=== PATIENT | male | born 1930 | race Asian ===

== ENCOUNTER 2016-04-06 00:23 | Inpatient (IN) | payer MEDICARE, OTHER ==
[~2016-04-06] VITALS: Ht 175.3 cm; Wt 63.5 kg
[2016-04-06] VITALS (9 sets, daily range): BP systolic 86–177; BP diastolic 35–105
[2016-04-06] MEDS ORDERED: DOCUSATE SODIU100 MG ORAL (00:32)
[2016-04-06] MEDS ORDERED: ZOLOFT50 MG ORAL (00:32)
[2016-04-06] MEDS ORDERED: PEPCID20 MG ORAL (00:32)
[2016-04-06] MEDS ORDERED: ATENOLOL100 MG ORAL (00:32)
[2016-04-06] MEDS ORDERED: ARICEPT10 MG ORAL (00:32)
[2016-04-06] MEDS ORDERED: PLAVIX75 MG ORAL (00:32)
[2016-04-06] MEDS ORDERED: ISOSORBIDE MONO10 MG PO (00:32)
[2016-04-06] MEDS ORDERED: NAMENDA10 MG ORAL (00:32)
[2016-04-06] MEDS ORDERED: ATORVASTATIN CA10 MG ORAL (00:32)
[2016-04-06] MEDS ORDERED: Ipratropium 0.02% Inh Soln 2.5ml UD HHN ONE (00:45)
[2016-04-06] MEDS ORDERED: NS 1000ml 1,900 ML IVLG ONE (00:45)
[2016-04-06] MEDS ORDERED: metroNIDAZOLE 500mg 100 ML IV SCH (00:45)
[2016-04-06] MEDS: Albuterol ud Inhalation HHN SCH ×12 (00:47→03:51)
[2016-04-06] MEDS ORDERED: Cefepime 1gm vial ONE (01:10)
[2016-04-06] MEDS ORDERED: NS 50 ML IV ONE (01:10)
[2016-04-06] MEDS ORDERED: Tubing IV Cassette IV ONE ×2 (01:10→02:32)
[2016-04-06] MEDS ORDERED: Acetaminophen 650mg/20.3ml NG ONE (02:00)
[2016-04-06 02:02] LABS: BASOPHILS % (AUTO) 0.8 % (0.0-2.0); EOSINOPHILS % (AUTO) 0.4 % (0.0-3.0); LYMPHOCYTES % (AUTO) 23.5 % (20.0-45.0); MEAN CORPUSCULAR HGB CONC 32.5 G/DL (32.0-36.0); MEAN CORPUSCULAR VOLUME 99 FL (80-99); MEAN PLATELET VOLUME 11.2 FL (6.5-10.1); MONOCYTES % (AUTO) 4.6 % (1.0-10.0); NEUTROPHILS % (AUTO) 70.7 % (45.0-75.0); PLATELET COUNT 206 K/UL (150-450); RED BLOOD COUNT 3.93 M/UL (4.70-6.10); RED CELL DISTRIBUTION WIDTH 12.8 % (11.6-14.8); WHITE BLOOD COUNT 10.7 K/UL (4.8-10.8)
[2016-04-06 02:04] LABS: INR 1.1 (0.9-1.1); PROTHROMBIN TIME 10.7 SEC (9.30-11.50)
[2016-04-06 02:10] LABS: TROPONIN I < 0.30 ng/mL (<=0.30)
[2016-04-06 02:11] LABS: ALANINE AMINOTRANSFERASE 15 U/L (3-41); ANION GAP 18 (5-15); ASPARTATE AMINO TRANSFERASE 25 U/L (5-40); CARBON DIOXIDE 22 mEQ/L (20-30); CHLORIDE 93 mEQ/L (98-107); CREATININE 1.3 mg/dL (0.7-1.2); HEMOLYSIS 20; POTASSIUM 4.4 mEQ/L (3.4-4.9); SODIUM 133 mEQ/L (135-145); TOTAL PROTEIN 7.7 g/dL (6.6-8.7)
[2016-04-06 02:15] LABS: REFLEX LACTIC ACID YES OR NO YES
[2016-04-06] MEDS ORDERED: D5W 250 ML ONE (02:32)
[2016-04-06] MEDS ORDERED: Vancomycin 1gm inj IVPB ONE (02:32)
[2016-04-06] MEDS ORDERED: Morphine Sulfate 2mg/ml Inj IVP ONE (03:15)
--- NOTE | 2016-04-06 03:42 | Emergency Room Report ---
History of Present Illness General Chief Complaint: Dyspnea/Respdistress Source: EMS Present Illness HPI Patient presents with dyspnea. EMS felt the patient to be warm to touch. Tachypnea and rhonchi. Patient is DNR. H/O CVA, CAD, dementia. No further history available. Allergies: Coded Allergies: No Known Allergies (Unverified , 04/06/16) Patient History Limited by: medical condition Past Medical History: see triage record Social History Narrative SNF Reviewed Nursing Documentation: PMH: Agreed, PSxH: Agreed Nursing Documentation-PMH Past Medical History: No History, Except For Hx Gastrointestinal Problems: Yes - g-tube, dysphagia Review of Systems All Other Systems: limited Physical Exam Vital Signs Date Time Temp Pulse Resp B/P Pulse Ox O2 Delivery O2 Flow Rate FiO2 04/06/16 00:20 85 22 180/90 93 Non-Rebreather 15.0 04/06/16 00:43 100 04/06/16 01:35 103.2 Sp02 EP Interpretation: reviewed, normal General Appearance: moderate distress, Chronically Ill Head: normocephalic Eyes: bilateral eye PERRL, bilateral eye normal inspection ENT: moist mucus membranes Neck: supple Respiratory: respiratory distress, rales, rhonchi, wheezing Cardiovascular #1: regular rate, rhythm, tachycardia Cardiovascular #2: 2+ radial (R) Gastrointestinal: normal inspection, non tender, no mass, non-distended, abnormal bowel sounds - decreased Musculoskeletal: back normal, gait/station normal, normal range of motion, pelvis stable, other - minimal contractures Neurologic: responsive - but with respiratory distress Psychiatric: other - resp to pain Skin: warm/dry Procedures Critical Care Time Critical Care Time Total time: 30 min bedside evaluation and treatment excludes procedures (EKG). Reason for critical care: respiratory distress, sepsis Possible complications: hypotension, hypertension, OK, shock, arrhythmias, metabolic acidosis, end organ damage, respiratory failure. Interventions: fluid bolus, antibiotics, treatment of fever, BIPAP, repeat evaluations and attempt to pass [place], determination of level of care Course: Patient with respiratory distress. CXR with pneumonia. Bronchodilators. Discussed with PMD. Still with resp distress. Morphine administered. Review of advanced directives allows for BIPAP. This is started with improvement and decreased distress and aid with respirations. Consultations: nursing staff, EMS, RT, PMD Performed by: Dr. Pamela Tolerated well condition = critical Medical Decision Making Diagnostic Impression: Primary Impression: Acute pneumonia Additional Impressions: Sepsis Qualified Codes: A41.9 - Sepsis, unspecified organism Unable to pass [place] ER Course Patient with respiratory distress. DDx pneumonia, CHF, AMI amongst others. Emergent evaluation with labs, EKG, CXR and treatment with IV bolus and albuterol with suctioning. CXR with L infiltrate. Fluids bolused and antibiotics begun. Attempt to pass [place]. Unable. Some improvement with morphine. Patient with resp distress. Ordering BIPAP for comfort measures- POLST reviewed. Admit Tele Dr. Grant. Patient improved on BIPAP. Laboratory Tests Test 04/06/16 00:32 04/06/16 01:40 Prothrombin Time 10.7 SEC (9.30-11.50) Prothrombin Time INR 1.1 (0.9-1.1) PTT 27 SEC (23-33) White Blood Count 10.7 K/UL (4.8-10.8) Red Blood Count 3.93 M/UL (4.70-6.10) L Hemoglobin 12.6 G/DL (14.2-18.0) L Hematocrit 38.8 % (42.0-52.0) L Mean Corpuscular Volume 99 FL (80-99) Mean Corpuscular Hemoglobin 32.0 PG (27.0-31.0) H Mean Corpuscular Hemoglobin Concent 32.5 G/DL (32.0-36.0) Red Cell Distribution Width 12.8 % (11.6-14.8) Platelet Count 206 K/UL (150-450) Mean Platelet Volume 11.2 FL (6.5-10.1) H Neutrophils (%) (Auto) 70.7 % (45.0-75.0) Lymphocytes (%) (Auto) 23.5 % (20.0-45.0) Monocytes (%) (Auto) 4.6 % (1.0-10.0) Eosinophils (%) (Auto) 0.4 % (0.0-3.0) Basophils (%) (Auto) 0.8 % (0.0-2.0) Sodium Level 133 mEQ/L (135-145) L Potassium Level 4.4 mEQ/L (3.4-4.9) Chloride Level 93 mEQ/L (98-107) L Carbon Dioxide Level 22 mEQ/L (20-30) Anion Gap 18 (5-15) H Blood Urea Nitrogen 26 mg/dL (7-23) H Creatinine 1.3 mg/dL (0.7-1.2) H Estimate Glomerular Filtration Rate mL/min (>60) Glucose Level 148 mg/dL (74-106) H Lactic Acid Level 4.20 mmol/L (0.66-2.22) H Calcium Level 9.0 mg/dL (8.6-10.2) Total Bilirubin 0.3 mg/dL (0.0-1.2) Aspartate Amino Transferase (AST) 25 U/L (5-40) Alanine Aminotransferase (ALT) 15 U/L (3-41) Alkaline Phosphatase 64 U/L (40-129) Total Creatine Kinase 68 U/L (38-174) Troponin I < 0.30 ng/mL (<=0.30) Pro-B-Type Natriuretic Peptide 1920 pg/mL (0-450) H Total Protein 7.7 g/dL (6.6-8.7) Albumin 3.9 g/dL (3.5-5.2) Globulin 3.8 g/dL Albumin/Globulin Ratio 1.0 (1.0-2.7) EKG Diagnostic Results Rate: tachycardiac ST Segments: no acute changes Rhythm Strip Diag. Results EP Interpretation: yes Rhythm: no PVC's, no ectopy, other - ST Chest X-Ray Diagnostic Results EP Interpretation: Yes Findings: no pneumothorax, other - L infiltrate, increased cor Number of Views: 1 Last Vital Signs Date Time Temp Pulse Resp B/P Pulse Ox O2 Delivery O2 Flow Rate FiO2 04/06/16 02:57 102.6 130 29 168/64 96 Non-Rebreather 8.0 04/06/16 02:05 100 Status: improved Disposition: ADMITTED INPATIENT Condition: Serious Referrals: NON PHYSICIAN (PCP) Beto Santiago M.D. Apr 06, 2016 03:42
[2016-04-06 07:29] LABS: ABG ALLEN TEST POSITIVE; ABG BASE EXCESS -7.3
--- NOTE | 2016-04-06 08:49 | Diagnostic Imaging Report ---
Indications: COUGH Technique: Portable AP chest Findings: Comparison: None Left lung volume decreased compared to right. Increased interstitial markings throughout both lungs. Pleural calcification left base. Right pleural abnormality. Cardiac silhouette enlarged. Pulmonary vasculature within normal limits. Aortic arch calcified. IMPRESSION: Bilateral interstitial disease, left lung volume loss, nonspecific, acuity indeterminate Left basal pleural calcification likely chronic postinflammatory in nature Cardiomegaly Aortosclerosis
[2016-04-06] MEDS ORDERED: Docusate 100mg cap ORAL SCH (09:00)
[2016-04-06] MEDS ORDERED: Donepezil 10mg tab ORAL SCH (09:00)
[2016-04-06] MEDS ORDERED: Sertraline 50mg tab ORAL SCH (09:00)
[2016-04-06] MEDS: Docusate 100mg tablet GT SCH ×2 (10:13→17:20)
[2016-04-06] MEDS: Sertraline 50mg tab GT SCH (10:13)
[2016-04-06] MEDS: Heparin 5000 units/ml inj SUBQ SCH ×2 (10:15→21:40)
[2016-04-06 10:24] LABS: ABG ALLEN TEST POSITIVE; ABG BASE EXCESS -7.5; ABG PCO2 39.6 mmHg (35.0-45.0)
--- NOTE | 2016-04-06 10:58 | History and Physical Report ---
DATE OF ADMISSION: 04/06/2016 CHIEF COMPLAINT: Respiratory failure, sepsis, and pneumonia. HISTORY OF PRESENT ILLNESS: The patient is a 86-year-old male. He has a history of dysphagia, stroke, dementia. He was transferred from a snf facility with complaints of shortness of breath and respiratory distress. On evaluation in the emergency room, the patient was febrile as high as 102. He was tachycardiac. He was eventually placed on BiPAP because of progressive shortness of breath. Laboratory tests were remarkable for white count of 11,000. He had a lactic acid level of 5.8. X-ray evidence of pneumonia. The patient had been started on broad-spectrum antibiotic therapy. He has been pancultured. There is a pulse for Do Not Resuscitate. The patient now admitted for further evaluation and care. He is lethargic and unable to provide any history. PAST MEDICAL HISTORY: As above. PAST SURGICAL HISTORY: Includes a G-tube. CURRENT MEDICATIONS: Reviewed. ALLERGIES: None. FAMILY HISTORY: None. SOCIAL HISTORY: There is no known history of tobacco, ethanol, or drugs. REVIEW OF SYSTEMS: From the patient is unobtainable. PHYSICAL EXAMINATION: VITAL SIGNS: Current temperature is 96.8 degrees, blood pressure 108/64, pulse of 103, and respirations 24. GENERAL: The patient is a chronic well-appearing male, in no apparent distress. HEART: Regular rate and rhythm. LUNGS: Significant for scattered rhonchi. ABDOMEN: Soft, nontender, and nondistended. EXTREMITIES: Without clubbing, cyanosis, or edema. LABORATORY DATA: White count 11, hemoglobin 12, hematocrit 38, and platelets 206,000. Sodium 133, potassium 4.4, chloride 93, bicarb 22, BUN 26, and creatinine . ASSESSMENT: This is a unfortunate male admitted with acute pneumonia, respiratory failure, sepsis, lactic acidosis, history of stroke, and history of toxic metabolic encephalopathy secondary to infection. PLAN: Continue BiPAP, respiratory treatments, IV antibiotics, intravenous hydration, DVT, and stress ulcer prophylaxis. The patient's prognosis is poor. Benjamin Machado M.D. DR: LULI JOB#: [id number] CC:
[2016-04-06] MEDS: Memantine 10mg tab GT SCH ×2 (11:47→21:40)
[2016-04-06] MEDS ORDERED: Memantine 10mg tab ORAL SCH (12:00)
[2016-04-06] MEDS: Donepezil 10mg tab GT SCH (21:39)
[2016-04-07 00:11] VITALS: BP 130/49
--- NOTE | 2016-04-07 03:47 | Consultation ---
DATE OF CONSULTATION: 04/06/2016 CARDIOLOGY CONSULTATION REQUESTING PHYSICIAN: Benjamin Machado M.D. REASON: Elevated natriuretic peptide assay. HISTORY OF PRESENT ILLNESS: This is an 86-year-old male residing at a [facility] facility, was transferred by paramedics to the emergency room for evaluation of shortness of breath. Nursing staff described relatively acute onset. The patient has a DNR status and is debilitated due to underlying cerebrovascular disease. The patient was short of breath, hypoxic, and tachycardic. He was pancultured. Chest x-ray revealed interstitial infiltrates. Lactic acid level was as high as 5.8. PAST MEDICAL HISTORY: 1. Cerebrovascular disease with dementia. 2. Dysphagia with gastrostomy tube. 3. Atherosclerotic cardiovascular disease. ALLERGIES: None known. FAMILY HISTORY: Noncontributory. SOCIAL HISTORY: No record of smoking or alcohol abuse. Advanced directives, DNR. MEDICATIONS: Prior to admission, reviewed and reconciled. PHYSICAL EXAMINATION: VITAL SIGNS: Temperature 103.2, blood pressure 180/90, pulse 85, and respiratory rate 22. HEENT: nares. LUNGS: Accessory muscle use. Bilateral rhonchi. HEART: Regular rhythm. Rapid rate. Normal S1 and S2 with a fourth heart sound. ABDOMEN: Soft. G-tube intact. EXTREMITIES: With trace dependent edema. Poor capillary refill. LABORATORY AND DIAGNOSTIC DATA: White count 10.7 and hemoglobin 12.6. BUN 26, creatinine 1.3, sodium 133, potassium 4.4, chloride 92, and bicarbonate 22. Pro-natriuretic peptide 1920. Troponin negative. Albumin 3.9. EKG with sinus tachycardia and nonspecific ST change. IMPRESSION: 1. Severe sepsis, lactic acidosis, healthcare-acquired pneumonia, aspiration. 2. Dysphagia with G-tube. 3. Secondary sinus tachycardia. 4. Labile hypertension. 5. Chronic diastolic congestive heart failure. 6. Hyponatremia. 7. Hypokalemia. 8. Acute on chronic kidney injury due to acute tubular necrosis. PLAN: 1. Potential venous access. 2. Broad-spectrum antibiotics following cultures. 3. Respiratory hygiene. 4. DVT prophylaxis. 5. No diuresis. 6. Volume support by IV route. 7. Hold feedings. 8. DNR based on advanced directives. 9. No antihypertensives presently indicated. 10. Blood pressure monitoring. Beto Taylor Grant DR: NATE JOB#: [id number] CC:
[2016-04-07 04:04] VITALS: BP 137/53
[2016-04-07 08:09] LABS: MEAN CORPUSCULAR HEMOGLOBIN 32.5 PG (27.0-31.0); MEAN CORPUSCULAR HGB CONC 32.8 G/DL (32.0-36.0); MEAN CORPUSCULAR VOLUME 99 FL (80-99); MEAN PLATELET VOLUME 10.1 FL (6.5-10.1); PLATELET COUNT 147 K/UL (150-450); RED BLOOD COUNT 3.12 M/UL (4.70-6.10); WHITE BLOOD COUNT 18.2 K/UL (4.8-10.8)
[2016-04-07 08:31] VITALS: BP 123/52
[2016-04-07 08:31] LABS: ALANINE AMINOTRANSFERASE 15 U/L (3-41); ALBUMIN/GLOBULIN RATIO 0.9 (1.0-2.7); ANION GAP 14 (5-15); ASPARTATE AMINO TRANSFERASE 34 U/L (5-40); CALCIUM 8.1 mg/dL (8.6-10.2); CARBON DIOXIDE 23 mEQ/L (20-30); CHLORIDE 103 mEQ/L (98-107); CREATININE 1.5 mg/dL (0.7-1.2); HEMOLYSIS 7; POTASSIUM 5.4 mEQ/L (3.4-4.9); SODIUM 140 mEQ/L (135-145); TOTAL PROTEIN 6.3 g/dL (6.6-8.7)
--- NOTE | 2016-04-07 08:34 | General Progress Note ---
Assessment/Plan Problem List: (1) Pneumonia ICD Codes: J18.9 - Pneumonia, unspecified organism SNOMED: 036005172 (2) Sepsis ICD Codes: A41.9 - Sepsis, unspecified organism SNOMED: 31724072 Qualifiers: Qualified Codes: A41.9 - Sepsis, unspecified organism Status: stable, progressing Assessment/Plan iv abx follow labs and abg wean bipap pulm eval follow up cultures d/w son. aware of poor prognosis Subjective ROS Limited/Unobtainable: No Constitutional: Reports: malaise, weakness HEENT: Reports: no symptoms Cardiovascular: Reports: no symptoms Respiratory: Reports: cough, shortness of breath Gastrointestinal/Abdominal: Reports: no symptoms Genitourinary: Reports: no symptoms Neurologic/Psychiatric: Reports: pre-existing deficit Endocrine: Reports: no symptoms Hematologic/Lymphatic: Reports: no symptoms Allergies: Coded Allergies: No Known Allergies (Unverified , 04/06/16) All Systems: reviewed and negative except above Subjective more alert. remains on bipap and iv abx. Objective Last 24 Hour Vital Signs Date Time Temp Pulse Resp B/P Pulse Ox O2 Delivery O2 Flow Rate FiO2 04/07/16 07:05 77 20 95 Facial 45 04/07/16 05:24 80 26 98 Facial 45 04/07/16 04:04 98.3 90 22 137/53 99 Bi-pap 04/07/16 04:00 40 04/07/16 04:00 78 04/07/16 03:12 85 18 95 Facial 45 04/07/16 01:30 82 20 96 Facial 45 04/07/16 00:11 97.9 71 21 130/49 92 Bi-pap 04/07/16 00:00 40 04/07/16 00:00 74 04/06/16 23:00 93 23 97 Facial 45 04/06/16 21:20 81 23 98 Facial 45 04/06/16 20:00 97.2 86 20 132/67 99 04/06/16 20:00 82 04/06/16 19:18 63 24 95 Full Face 45 04/06/16 16:50 76 20 Full Face 45 04/06/16 16:00 97.3 78 20 107/40 99 04/06/16 16:00 79 04/06/16 14:52 95 19 Full Face 45 04/06/16 13:10 101 17 100 Full Face 45 04/06/16 11:25 96.6 74 19 86/41 97 Bi-pap 45 04/06/16 11:25 108 18 100 Full Face 45 04/06/16 10:20 110 108/64 04/06/16 10:01 110 29 100 Full Face 45 Intake and Output 04/06/16 04/07/16 19:00 07:00 Intake Total 1100 ml 400 ml Balance 1100 ml 400 ml Intake IV Total 1100 ml 400 ml # Voids 3 # Bowel Movements 1 Laboratory Tests 04/06/16 10:10: Arterial Blood pH 7.289L, Arterial Blood Partial Pressure CO2 39.6, Arterial Blood Partial Pressure O2 73.1L, Arterial Blood HCO3 18.6L, Arterial Blood Oxygen Saturation 94.9, Arterial Blood Base Excess -7.5, Shine Test Positive 04/07/16 07:25: White Blood Count 18.2#H, Red Blood Count 3.12L, Hemoglobin 10.2L, Hematocrit 31.0L, Mean Corpuscular Volume 99, Mean Corpuscular Hemoglobin 32.5H, Mean Corpuscular Hemoglobin Concent 32.8, Red Cell Distribution Width 13.0, Platelet Count 147L, Mean Platelet Volume 10.1, Neutrophils (%) (Auto) , Lymphocytes (%) (Auto) , Monocytes (%) (Auto) , Eosinophils (%) (Auto) , Basophils (%) (Auto) , Neutrophils % (Manual) [Pending], Lymphocytes % (Manual) [Pending], Platelet Estimate [Pending], Platelet Morphology [Pending], Sodium Level [Pending], Potassium Level [Pending], Chloride Level [Pending], Carbon Dioxide Level [ Pending], Blood Urea Nitrogen [Pending], Creatinine [Pending], Estimat Glomerular Filtration Rate [Pending], Glucose Level [Pending], Calcium Level [ Pending], Total Bilirubin [Pending], Aspartate Amino Transf (AST/SGOT) [Pending] , Alanine Aminotransferase (ALT/SGPT) [Pending], Alkaline Phosphatase [Pending] , Total Protein [Pending], Albumin [Pending], Globulin [Pending] Height (Feet): 5 Height (Inches): 9.00 Weight (Pounds): 140 General Appearance: WD/WN, confused Neck: supple Cardiovascular: regular rhythm Respiratory/Chest: lungs clear Abdomen: normal bowel sounds, non tender, soft, no organomegaly, no mass Edema: no edema noted Arm (L), no edema noted Arm (R), no edema noted Leg (L), no edema noted Leg (R), no edema noted Pedal (L), no edema noted Pedal (R), no edema noted Generalized Neurologic: responsive CHET MALCOLM Apr 07, 2016 08:34
[2016-04-07] MEDS: Docusate 100mg tablet GT SCH ×2 (08:37→17:52)
[2016-04-07] MEDS: Sertraline 50mg tab GT SCH (08:37)
[2016-04-07] MEDS: Memantine 10mg tab GT SCH ×2 (08:38→21:54)
[2016-04-07] MEDS: Heparin 5000 units/ml inj SUBQ SCH ×2 (08:38→21:00)
[2016-04-07] MEDS ORDERED: Zosyn 2.25gm inj IV SCH (09:15)
[2016-04-07 10:12] LABS: BAND NEUTROPHILS % (MANUAL) 36 % (0-8); LYMPHOCYTES % (MANUAL) 12 % (20-45); METAMYELOCYTES % 1 % (0-0); NEUTROPHILS % (MANUAL) 48 % (45-75); TOTAL CELLS COUNTED 100
[2016-04-07 10:13] LABS: BASOPHILS % (MANUAL) 0 % (0-2); EOSINOPHILS % (MANUAL) 0 % (0-3); PLATELET ESTIMATE ADEQUATE; PLATELET MORPHOLOGY NORMAL
--- NOTE | 2016-04-07 10:47 | Consultation ---
DATE OF CONSULTATION: 04/07/2016 PULMONARY CONSULTATION: CONSULTING PHYSICIAN: Eusebio Gregory M.D. REFERRING PHYSICIAN: Benjamin Machado M.D. HISTORY OF PRESENT ILLNESS: This is an unfortunate male who presented to the emergency room for respiratory failure. The patient is 86 years of age. The patient lives in a correction facility brought in by paramedics. The patient has do not resuscitate status. The patient is currently on BiPAP. I was asked to evaluate and recommend further. The patient is poorly responsive, short of breath, hypoxic, and was tachycardic. The patient was started on antibiotics, respiratory failure, BiPAP management. I was called to assist and evaluate further. X-rays do reveal interstitial changes possibly consistent with pulmonary edema versus atypical pulmonary infection. The patient unable to give any history. shelter records reviewed. PAST MEDICAL HISTORY: Notable for CVA, dementia, the patient has G-tube, and atherosclerotic heart disease. MEDICATIONS: Reviewed and reconciled. ALLERGIES: Reviewed. SOCIAL HISTORY: Do not resuscitate. Nonsmoker and nondrinker. The patient is a shelter patient. Mostly bedbound. FAMILY HISTORY: Not available. PHYSICAL EXAMINATION: GENERAL: A well-developed male. The patient appears to be chronically ill. The patient appears older than stated age. VITAL SIGNS: Reviewed in detail. Currently, blood pressure 137/53, temperature 98.3 degrees, pulse 22, saturation 99% on BiPAP. The patient's T-max 103. HEENT: Fairly negative. NECK: Supple. No adenopathy. Pupils are sluggish, but reactive. LUNGS: With coarse breath sounds. Minimal rhonchi and some crackles at both bases. CARDIAC: S1 and S2. Regular rhythm. Soft systolic murmur at the parasternal border. No rubs or gallops. ABDOMEN: Soft, nontender, and nondistended. G-tube in place. No hepatosplenomegaly. EXTREMITIES: No cyanosis, clubbing, or edema. NEUROLOGIC: Grossly nonfocal. LABORATORY DATA: abg 7.28, 9, 39, 73, 18. Chemistries, sodium 133, potassium 4, chloride 93, BUN 26, and creatinine 1.3. White count 10.7, hemoglobin 12.6, hematocrit 38.8, and platelets of 206,000. X-rays with interstitial changes. IMPRESSION: 1. Possible pulmonary edema. 2. 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 3. Hyponatremia. 4. Acute renal failure. 5. Metabolic acidosis. 6. Significant acidemia. 7. Altered mental status. 8. Acute on chronic encephalopathy. 9. Underlying dementia. 10. Do not resuscitate status. RECOMMENDATIONS: Continue with supportive care as outlined. Resume shelter medications, DVT prophylaxis, empiric antibiotics, BiPAP management for now. Followup arterial blood gases as needed. Await improving in metabolic acidosis prior to weaning off the BiPAP. Agree with do not resuscitate status and continue with supportive care as outlined. No clear evidence of significant fluid overload. At present, empiric antibiotics and monitor cultures. Followup arterial blood gases as well as x-rays and routinely presents for and will follow clinically and recommend further. Eusebio Gregory M.D. DR: CASSIUS JOB#: [id number] CC: REBEKAH
[2016-04-07] MEDS: Vancomycin 750mg/D5W 250ml IVPB SCH ×2 (11:03)
[2016-04-07 12:04] VITALS: BP 127/44
[2016-04-07] MEDS ORDERED: NS 550ML IV ONE (14:59)
[2016-04-07] MEDS ORDERED: Sterile Water Irrig 1000ml IRRIG ONE (14:59)
--- NOTE | 2016-04-07 15:28 | Consultation ---
DATE OF CONSULTATION: 04/07/2016 INFECTIOUS DISEASE CONSULTATION REFERRING PHYSICIAN: Benjamin Machado M.D. REASON FOR CONSULTATION: Pneumonia. HISTORY OF PRESENTING ILLNESS: This is an 86-year-old gentleman with a history of stroke, dysphagia and dementia, who was transferred from a retirement facility for shortness of breath and respiratory distress. He was seen in [facility] emergency room where he was found to have fevers. He was placed on a BiPAP. He was found to have a pneumonia and an Infectious Diseases consultation has been obtained for antibiotics. The patient is on a BiPAP. PAST MEDICAL HISTORY: 1. History of dementia. 2. History of dysphagia. 3. History of CVA. 4. Status post G-tube placement. MEDICATIONS: As an inpatient, the patient is on IV vancomycin, Zosyn, Lipitor, Aricept, Namenda, atenolol, Plavix, Zoloft, Colace, subcutaneous heparin and Tylenol. ALLERGIES: No known drug allergies. SOCIAL HISTORY: No history of smoking, alcohol, or drug use. FAMILY HISTORY: Unknown. REVIEW OF SYSTEMS: Unable to obtain currently. PHYSICAL EXAMINATION: VITAL SIGNS: Temperature of 98.2 degrees, T-max of 102.6 degrees, pulse of 78, respiratory of 27, blood pressure 123/52 and O2 saturation of 96%. HEENT: Pupils equally reactive to light and accommodation. Mouth appears clean without thrush. NECK: Supple. No adenopathy. No JVD. CARDIOVASCULAR: Regular rate and rhythm. No murmurs. LUNGS: Clear to auscultation bilaterally. No crackles. No wheezes. ABDOMEN: Soft and nontender. G-tube site appears clean. EXTREMITIES: No cyanosis, no clubbing, and no edema. LABORATORY AND DIAGNOSTIC DATA: White count of 18.2, hemoglobin 10.2, hematocrit 31, MCV 99, platelet count of 147,000 and neutrophils of 48%. Sodium 140, potassium 5.4, chloride 103, bicarbonate 23, BUN 32, creatinine 1.5 and glucose of 70. Calcium 8.1. Total bilirubin 0.3. AST 34, ALT 15 and alkaline phosphatase 42. Total protein 6.3. Albumin for 3. Blood cultures are negative from 04/06/2016. Chest x-ray is showing bilateral interstitial disease, cardiomegaly and left base pleural calcification noted. ASSESSMENT: 1. This is an 86-year-old gentleman with history of cerebrovascular disease and dementia, who comes in and is found to have a pneumonia, could be consistent with an aspiration pneumonia or an atypical pneumonia. 2. Hypertension. 3. Cerebrovascular accident. 4. Leukocytosis. 5. Respiratory failure. PLAN: 1. Continue vancomycin and Zosyn. 2. We will start the patient on doxycycline. 3. We will order sputum for Gram-stain and culture. 4. We will order for mycoplasma serology. 5. We will order serum Legionella antibody. 6. We will order a nasal swab for influenza. I would like to thank, Dr. Machado, for this consultation. Lupe Miranda M.D. DR: LALI JOB#: [id number] CC: Benjamin Machado M.D.
[2016-04-07 16:00] VITALS: BP 133/65
[2016-04-07] MEDS ORDERED: Sodium Polystyrene Sulfonate Enema RECTAL ONE (18:00)
[2016-04-07 20:00] VITALS: BP 141/66
[2016-04-07] MEDS: Donepezil 10mg tab GT SCH (21:53)
[2016-04-08] VITALS: BP 124/56
[2016-04-08 04:00] VITALS: BP 122/52
[2016-04-08 07:34] LABS: MEAN CORPUSCULAR HEMOGLOBIN 32.7 PG (27.0-31.0); MEAN CORPUSCULAR HGB CONC 32.8 G/DL (32.0-36.0); MEAN CORPUSCULAR VOLUME 100 FL (80-99); MEAN PLATELET VOLUME 10.5 FL (6.5-10.1); PLATELET COUNT 156 K/UL (150-450); RED BLOOD COUNT 3.15 M/UL (4.70-6.10); RED CELL DISTRIBUTION WIDTH 13.3 % (11.6-14.8); WHITE BLOOD COUNT 21.2 K/UL (4.8-10.8)
[2016-04-08 08:00] VITALS: BP 130/59
[2016-04-08 08:00] LABS: ALANINE AMINOTRANSFERASE 15 U/L (3-41); ALBUMIN/GLOBULIN RATIO 0.8 (1.0-2.7); ANION GAP 16 (5-15); ASPARTATE AMINO TRANSFERASE 27 U/L (5-40); CALCIUM 8.3 mg/dL (8.6-10.2); CARBON DIOXIDE 21 mEQ/L (20-30); CHLORIDE 106 mEQ/L (98-107); CREATININE 1.5 mg/dL (0.7-1.2); HEMOLYSIS 3; POTASSIUM 4.3 mEQ/L (3.4-4.9); SODIUM 143 mEQ/L (135-145); TOTAL PROTEIN 6.3 g/dL (6.6-8.7)
[2016-04-08 08:29] LABS: BAND NEUTROPHILS % (MANUAL) 14 % (0-8); BASOPHILS % (MANUAL) 0 % (0-2); EOSINOPHILS % (MANUAL) 0 % (0-3); LYMPHOCYTES % (MANUAL) 4 % (20-45); MACROCYTES 1+; NEUTROPHILS % (MANUAL) 78 % (45-75); PLATELET ESTIMATE ADEQUATE; PLATELET MORPHOLOGY NORMAL; TOTAL CELLS COUNTED 100
--- NOTE | 2016-04-08 08:46 | Pulmonology Progress Note ---
Assessment/Plan Assessment/Plan IMPRESSION: 1. Possible pulmonary edema. 2. 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 3. Hyponatremia. 4. Acute renal failure. 5. Metabolic acidosis. 6. Significant acidemia. 7. Altered mental status. 8. Acute on chronic encephalopathy. 9. Underlying dementia. 10. Do not resuscitate status. PLAN recheck ABG monitor acid base status BIPAP as needed keep negative empiric antibiotics respiratory care impression, plan, and exam edited and reviewed in detail care discussed with RN Subjective ROS Limited/Unobtainable: Yes Allergies: Coded Allergies: No Known Allergies (Unverified , 04/06/16) Subjective still tachypneic Objective Last 24 Hour Vital Signs Date Time Temp Pulse Resp B/P Pulse Ox O2 Delivery O2 Flow Rate FiO2 04/08/16 08:00 98.4 74 24 130/59 100 Bi-pap 04/08/16 07:20 68 24 98 Facial 45 04/08/16 05:00 85 22 99 Facial 45 04/08/16 04:00 8.0 45 04/08/16 04:00 97.9 71 18 122/52 99 Room Air 04/08/16 04:00 74 04/08/16 03:05 73 20 98 Facial 45 04/08/16 01:20 76 25 98 Facial 45 04/08/16 00:00 8.0 45 04/08/16 00:00 72 04/08/16 00:00 97.7 74 20 124/56 99 Bi-pap 04/07/16 23:14 78 20 96 Facial 45 04/07/16 21:18 85 30 97 Facial 45 04/07/16 20:00 97.0 90 22 141/66 95 Bi-pap 04/07/16 20:00 45 04/07/16 20:00 87 04/07/16 19:15 82 26 96 Facial 45 04/07/16 17:30 78 23 96 Facial 45 04/07/16 16:00 45 04/07/16 16:00 97.7 71 22 133/65 98 04/07/16 16:00 68 04/07/16 15:01 76 25 96 Facial 45 04/07/16 13:20 75 20 95 Facial 45 04/07/16 12:04 97.9 80 22 127/44 98 Bi-pap 04/07/16 12:00 45 04/07/16 10:35 74 25 96 Facial 45 04/07/16 08:47 78 27 96 Facial 45 Intake and Output 04/07/16 04/08/16 19:00 07:00 Intake Total 650 ml Balance 650 ml Intake IV Total 650 ml # Voids 2 4 # Bowel Movements 1 Objective GENERAL: A well-developed male. The patient appears to be chronically ill. HEENT: negative. NECK: Supple. No adenopathy. Pupils are sluggish, but reactive. LUNGS: With coarse breath sounds. some rhonchi and some crackles at both bases. CARDIAC: S1 and S2. Regular rhythm. Soft systolic murmur at the parasternal border. No rubs or gallops. ABDOMEN: Soft, nontender, and nondistended. G-tube in place. No hepatosplenomegaly. EXTREMITIES: No cyanosis, clubbing, or edema. NEUROLOGIC: Grossly nonfocal. Microbiology Date/Time Source Procedure Growth Status 04/06/16 01:45 Blood Blood Culture - Preliminary NO GROWTH AFTER 48 HOURS Resulted 04/06/16 01:40 Blood Blood Culture - Preliminary NO GROWTH AFTER 48 HOURS Resulted 04/07/16 14:00 Nasal Nares Influenza Types A,B Antigen (MARIA ISABEL) - Final Complete 04/06/16 03:15 Rectum VRE Culture - Final NO VANCOMYCIN RESISTANT ENTEROCOCCUS ... Complete Laboratory Tests 04/08/16 06:15: White Blood Count 21.2H, Red Blood Count 3.15L, Hemoglobin 10.3L, Hematocrit 31.4L, Mean Corpuscular Volume 100H, Mean Corpuscular Hemoglobin 32.7H, Mean Corpuscular Hemoglobin Concent 32.8, Red Cell Distribution Width 13.3, Platelet Count 156, Mean Platelet Volume 10.5H, Neutrophils (%) (Auto) , Lymphocytes (%) (Auto) , Monocytes (%) (Auto) , Eosinophils (%) (Auto) , Basophils (%) (Auto) , Differential Total Cells Counted 100, Neutrophils % (Manual) 78H, Lymphocytes % (Manual) 4L, Monocytes % (Manual) 4, Eosinophils % (Manual) 0, Basophils % ( Manual) 0, Band Neutrophils 14H, Platelet Estimate Adequate, Platelet Morphology Normal, Macrocytosis 1+, Sodium Level 143, Potassium Level 4.3, Chloride Level 106, Carbon Dioxide Level 21, Anion Gap 16H, Blood Urea Nitrogen 34H, Creatinine 1.5H, Estimat Glomerular Filtration Rate , Glucose Level 76, Calcium Level 8.3L, Total Bilirubin 0.3, Aspartate Amino Transf (AST/SGOT) 27, Alanine Aminotransferase (ALT/SGPT) 15, Alkaline Phosphatase 162H, Total Protein 6.3L, Albumin 2.9L, Globulin 3.4, Albumin/Globulin Ratio 0.8L Current Medications Medications (Trade) Dose Ordered Sig/Yusra Route PRN Reason Start Time Stop Time Status Last Admin Dose Admin Acetaminophen 650 mg 650 mg Q4H PRN ORAL Mild Pain/Temp > 100.5 04/06/16 06:30 05/06/16 06:29 Atenolol (Tenormin) 100 mg DAILY GT 04/06/16 10:30 05/06/16 10:29 04/07/16 08:37 Atorvastatin Calcium (Lipitor) 10 mg BEDTIME ORAL 04/06/16 21:00 05/06/16 20:59 04/07/16 21:54 Clopidogrel Bisulfate (Plavix) 75 mg DAILY GT 04/06/16 10:30 05/06/16 10:29 04/07/16 08:37 Docusate Sodium (Colace) 100 mg BID GT 04/06/16 10:00 05/06/16 09:59 04/07/16 17:52 Donepezil HCl (Aricept) 10 mg QHS GT 04/06/16 21:00 05/06/16 20:59 04/07/16 21:53 Doxycycline Monohydrate (Vibramycin) 100 mg EVERY 12 HOURS GT 04/07/16 11:00 04/14/16 10:59 04/07/16 21:54 Heparin Sodium (Porcine) (Heparin 5000 units/ml) 5,000 units EVERY 12 HOURS SUBQ 04/06/16 09:00 05/06/16 08:59 04/07/16 08:38 Memantine (Namenda) 10 mg Q12HR GT 04/06/16 12:00 05/06/16 11:59 04/07/16 21:54 Piperacillin Sod/ Tazobactam Sod/ Sodium Chloride (Zosyn/Sodium Chloride 100ml bag) 100 ml @ 25 mls/hr Q8H IVPB 04/07/16 12:00 04/14/16 11:59 04/08/16 04:40 Sertraline HCl (Zoloft) 50 mg DAILY GT 04/06/16 10:30 05/06/16 10:29 04/07/16 08:37 Sodium Chloride (Sodium Chloride 1000ml bag) 1,000 ml @ 100 mls/hr Q10H IV 04/06/16 06:30 05/06/16 06:29 04/07/16 12:45 Vancomycin HCl 750 mg/Dextrose 250 ml @ 167 mls/hr Q24H IVPB 04/07/16 11:00 04/12/16 10:59 04/07/16 11:03 Vancomycin HCl 1 ea 1 ea DAILY PRN MISC Per rx protocol 04/07/16 09:15 05/07/16 09:14 DULCE PRICE Apr 08, 2016 08:46
[2016-04-08] MEDS: Sertraline 50mg tab GT SCH (09:03)
[2016-04-08] MEDS: Memantine 10mg tab GT SCH ×2 (09:04→21:10)
[2016-04-08] MEDS: Docusate 100mg tablet GT SCH ×2 (09:04→17:30)
[2016-04-08] MEDS: Heparin 5000 units/ml inj SUBQ SCH ×2 (09:05→21:12)
[2016-04-08 09:25] LABS: ABG ALLEN TEST POSITIVE; ABG BASE EXCESS -7.1; ABG PCO2 44.9 mmHg (35.0-45.0)
--- NOTE | 2016-04-08 09:29 | General Progress Note ---
Assessment/Plan Problem List: (1) Pneumonia ICD Codes: J18.9 - Pneumonia, unspecified organism SNOMED: 715313207 (2) Sepsis ICD Codes: A41.9 - Sepsis, unspecified organism SNOMED: 43413751 Qualifiers: Qualified Codes: A41.9 - Sepsis, unspecified organism Status: stable, progressing Assessment/Plan iv abx follow labs and abg wean bipap start feeds pulm and ID appreciated. follow up cultures d/w son. aware of poor prognosis Subjective ROS Limited/Unobtainable: No Constitutional: Reports: malaise, weakness HEENT: Reports: no symptoms Cardiovascular: Reports: no symptoms Respiratory: Reports: shortness of breath Gastrointestinal/Abdominal: Reports: difficulty swallowing Genitourinary: Reports: no symptoms Neurologic/Psychiatric: Reports: pre-existing deficit Endocrine: Reports: no symptoms Hematologic/Lymphatic: Reports: anemia Allergies: Coded Allergies: No Known Allergies (Unverified , 04/06/16) All Systems: reviewed and negative except above Subjective more lethargic. remains on bipap and iv abx. wbc higher. poorly responsive. on ivf. Objective Last 24 Hour Vital Signs Date Time Temp Pulse Resp B/P Pulse Ox O2 Delivery O2 Flow Rate FiO2 04/08/16 09:04 74 130/59 04/08/16 08:00 98.4 74 24 130/59 100 Bi-pap 04/08/16 07:20 68 24 98 Facial 45 04/08/16 05:00 85 22 99 Facial 45 04/08/16 04:00 8.0 45 04/08/16 04:00 97.9 71 18 122/52 99 Room Air 04/08/16 04:00 74 04/08/16 03:05 73 20 98 Facial 45 04/08/16 01:20 76 25 98 Facial 45 04/08/16 00:00 8.0 45 04/08/16 00:00 72 04/08/16 00:00 97.7 74 20 124/56 99 Bi-pap 04/07/16 23:14 78 20 96 Facial 45 04/07/16 21:18 85 30 97 Facial 45 04/07/16 20:00 97.0 90 22 141/66 95 Bi-pap 04/07/16 20:00 45 04/07/16 20:00 87 04/07/16 19:15 82 26 96 Facial 45 04/07/16 17:30 78 23 96 Facial 45 04/07/16 16:00 45 04/07/16 16:00 97.7 71 22 133/65 98 04/07/16 16:00 68 04/07/16 15:01 76 25 96 Facial 45 04/07/16 13:20 75 20 95 Facial 45 04/07/16 12:04 97.9 80 22 127/44 98 Bi-pap 04/07/16 12:00 45 04/07/16 10:35 74 25 96 Facial 45 Intake and Output 04/07/16 04/08/16 19:00 07:00 Intake Total 650 ml Balance 650 ml Intake IV Total 650 ml # Voids 2 4 # Bowel Movements 1 Laboratory Tests 04/08/16 06:15: White Blood Count 21.2H, Red Blood Count 3.15L, Hemoglobin 10.3L, Hematocrit 31.4L, Mean Corpuscular Volume 100H, Mean Corpuscular Hemoglobin 32.7H, Mean Corpuscular Hemoglobin Concent 32.8, Red Cell Distribution Width 13.3, Platelet Count 156, Mean Platelet Volume 10.5H, Neutrophils (%) (Auto) , Lymphocytes (%) (Auto) , Monocytes (%) (Auto) , Eosinophils (%) (Auto) , Basophils (%) (Auto) , Differential Total Cells Counted 100, Neutrophils % (Manual) 78H, Lymphocytes % (Manual) 4L, Monocytes % (Manual) 4, Eosinophils % (Manual) 0, Basophils % ( Manual) 0, Band Neutrophils 14H, Platelet Estimate Adequate, Platelet Morphology Normal, Macrocytosis 1+, Sodium Level 143, Potassium Level 4.3, Chloride Level 106, Carbon Dioxide Level 21, Anion Gap 16H, Blood Urea Nitrogen 34H, Creatinine 1.5H, Estimat Glomerular Filtration Rate , Glucose Level 76, Calcium Level 8.3L, Total Bilirubin 0.3, Aspartate Amino Transf (AST/SGOT) 27, Alanine Aminotransferase (ALT/SGPT) 15, Alkaline Phosphatase 162H, Total Protein 6.3L, Albumin 2.9L, Globulin 3.4, Albumin/Globulin Ratio 0.8L 04/08/16 09:20: Arterial Blood pH 7.260L, Arterial Blood Partial Pressure CO2 44.9, Arterial Blood Partial Pressure O2 98.3, Arterial Blood HCO3 19.7L, Arterial Blood Oxygen Saturation 97.3, Arterial Blood Base Excess -7.1, Shine Test Positive Height (Feet): 5 Height (Inches): 9.00 Weight (Pounds): 140 General Appearance: WD/WN, confused, thin Neck: supple Cardiovascular: regular rhythm Respiratory/Chest: rhonchi - bilaterally Abdomen: normal bowel sounds, non tender, soft, no organomegaly Edema: no edema noted Arm (L), no edema noted Arm (R), no edema noted Leg (L), no edema noted Leg (R), no edema noted Pedal (L), no edema noted Pedal (R), no edema noted Generalized Edema: trace edema Neurologic: unresponsive, aphasia CHET MALCOLM Apr 08, 2016 09:29
[2016-04-08 09:39] LABS: OTHERS PATHOLOGIST COMMENT
[2016-04-08] MEDS: Vancomycin 750mg/D5W 250ml IVPB SCH ×2 (10:03)
--- NOTE | 2016-04-08 10:25 | Infectious Diseases Prog Note ---
Assessment/Plan Assessment/Plan antibiotics : vancomycin iv, zosyn, doxycycline A 1. pneumonia 2. respiratory failure 3. leucocytosis 4. CVA 5. HTN P 1. continue vancomycin iv, zosyn, doxycycline 2. will follow up cultures Subjective ROS Limited/Unobtainable: Yes Allergies: Coded Allergies: No Known Allergies (Unverified , 04/06/16) Objective Vital Signs Last 24 Hour Vital Signs Date Time Temp Pulse Resp B/P Pulse Ox O2 Delivery O2 Flow Rate FiO2 04/08/16 09:20 70 19 99 Facial 45 04/08/16 09:04 74 130/59 04/08/16 08:00 8.0 45 04/08/16 08:00 98.4 74 24 130/59 100 Bi-pap 04/08/16 07:20 68 24 98 Facial 45 04/08/16 05:00 85 22 99 Facial 45 04/08/16 04:00 8.0 45 04/08/16 04:00 97.9 71 18 122/52 99 Room Air 04/08/16 04:00 74 04/08/16 03:05 73 20 98 Facial 45 04/08/16 01:20 76 25 98 Facial 45 04/08/16 00:00 8.0 45 04/08/16 00:00 72 04/08/16 00:00 97.7 74 20 124/56 99 Bi-pap 04/07/16 23:14 78 20 96 Facial 45 04/07/16 21:18 85 30 97 Facial 45 04/07/16 20:00 97.0 90 22 141/66 95 Bi-pap 04/07/16 20:00 45 04/07/16 20:00 87 04/07/16 19:15 82 26 96 Facial 45 04/07/16 17:30 78 23 96 Facial 45 04/07/16 16:00 45 04/07/16 16:00 97.7 71 22 133/65 98 04/07/16 16:00 68 04/07/16 15:01 76 25 96 Facial 45 04/07/16 13:20 75 20 95 Facial 45 04/07/16 12:04 97.9 80 22 127/44 98 Bi-pap 04/07/16 12:00 45 04/07/16 10:35 74 25 96 Facial 45 Height (Feet): 5 Height (Inches): 9.00 Weight (Pounds): 140 HEENT: other - on bipap Respiratory/Chest: lungs clear Cardiovascular: normal rate, regular rhythm, no gallop/murmur Abdomen: soft, non tender, other - GT Extremities: no edema Microbiology Date/Time Source Procedure Growth Status 04/06/16 01:45 Blood Blood Culture - Preliminary NO GROWTH AFTER 48 HOURS Resulted 04/06/16 01:40 Blood Blood Culture - Preliminary NO GROWTH AFTER 48 HOURS Resulted 04/07/16 14:00 Nasal Nares Influenza Types A,B Antigen (MARIA ISABEL) - Final Complete 04/06/16 03:15 Nasal Nares MRSA Culture - Final Staphylococcus Aureus - Mrsa Complete 04/06/16 03:15 Rectum VRE Culture - Final NO VANCOMYCIN RESISTANT ENTEROCOCCUS ... Complete Laboratory Tests Test 04/08/16 06:15 04/08/16 09:20 White Blood Count 21.2 K/UL (4.8-10.8) H Red Blood Count 3.15 M/UL (4.70-6.10) L Hemoglobin 10.3 G/DL (14.2-18.0) L Hematocrit 31.4 % (42.0-52.0) L Mean Corpuscular Volume 100 FL (80-99) H Mean Corpuscular Hemoglobin 32.7 PG (27.0-31.0) H Mean Corpuscular Hemoglobin Concent 32.8 G/DL (32.0-36.0) Red Cell Distribution Width 13.3 % (11.6-14.8) Platelet Count 156 K/UL (150-450) Mean Platelet Volume 10.5 FL (6.5-10.1) H Neutrophils (%) (Auto) % (45.0-75.0) Lymphocytes (%) (Auto) % (20.0-45.0) Monocytes (%) (Auto) % (1.0-10.0) Eosinophils (%) (Auto) % (0.0-3.0) Basophils (%) (Auto) % (0.0-2.0) Differential Total Cells Counted 100 Neutrophils % (Manual) 78 % (45-75) H Lymphocytes % (Manual) 4 % (20-45) L Monocytes % (Manual) 4 % (1-10) Eosinophils % (Manual) 0 % (0-3) Basophils % (Manual) 0 % (0-2) Band Neutrophils 14 % (0-8) H Platelet Estimate Adequate Platelet Morphology Normal Macrocytosis 1+ Sodium Level 143 mEQ/L (135-145) Potassium Level 4.3 mEQ/L (3.4-4.9) Chloride Level 106 mEQ/L (98-107) Carbon Dioxide Level 21 mEQ/L (20-30) Anion Gap 16 (5-15) H Blood Urea Nitrogen 34 mg/dL (7-23) H Creatinine 1.5 mg/dL (0.7-1.2) H Estimat Glomerular Filtration Rate mL/min (>60) Glucose Level 76 mg/dL (74-106) Calcium Level 8.3 mg/dL (8.6-10.2) L Total Bilirubin 0.3 mg/dL (0.0-1.2) Aspartate Amino Transf (AST/SGOT) 27 U/L (5-40) Alanine Aminotransferase (ALT/SGPT) 15 U/L (3-41) Alkaline Phosphatase 162 U/L (40-129) H Total Protein 6.3 g/dL (6.6-8.7) L Albumin 2.9 g/dL (3.5-5.2) L Globulin 3.4 g/dL Albumin/Globulin Ratio 0.8 (1.0-2.7) L Arterial Blood pH 7.260 (7.350-7.450) Arterial Blood Partial Pressure CO2 44.9 mmHg (35.0-45.0) Arterial Blood Partial Pressure O2 98.3 mmHg (75.0-100.0) Arterial Blood HCO3 19.7 mmol/L (22.0-26.0) L Arterial Blood Oxygen Saturation 97.3 % (92.0-98.0) Arterial Blood Base Excess -7.1 Shine Test Positive JAN WU Apr 08, 2016 10:25
[2016-04-08] MEDS: DuoNeb 0.5-3(2.5)mg/3ml neb HHN SCH ×4 (11:15→23:07)
[2016-04-08 12:00] VITALS: BP 116/61
--- NOTE | 2016-04-08 14:05 | Cardiology Report ---
APPROVED REPORT EKG Measurement Heart [id number] Normal sinus rhythm Possible Left atrial enlargement Nonspecific intraventricular block T wave abnormality, consider anterior ischemia Abnormal ECG
[2016-04-08 16:00] VITALS: BP 141/61
[2016-04-08 19:00] VITALS: BP 157/78
[2016-04-08] MEDS: Donepezil 10mg tab GT SCH (21:10)
[2016-04-09 00:06] VITALS: BP 134/53
[2016-04-09] MEDS: DuoNeb 0.5-3(2.5)mg/3ml neb HHN SCH ×6 (03:12→23:15)
[2016-04-09 04:03] VITALS: BP 142/58
[2016-04-09 06:57] LABS: MEAN CORPUSCULAR HEMOGLOBIN 32.3 PG (27.0-31.0); MEAN CORPUSCULAR HGB CONC 32.5 G/DL (32.0-36.0); MEAN CORPUSCULAR VOLUME 99 FL (80-99); MEAN PLATELET VOLUME 10.5 FL (6.5-10.1); PLATELET COUNT 157 K/UL (150-450); RED BLOOD COUNT 2.93 M/UL (4.70-6.10); RED CELL DISTRIBUTION WIDTH 13.3 % (11.6-14.8); WHITE BLOOD COUNT 17.6 K/UL (4.8-10.8)
[2016-04-09 07:20] LABS: ALANINE AMINOTRANSFERASE 12 U/L (3-41); ALBUMIN/GLOBULIN RATIO 0.8 (1.0-2.7); ANION GAP 13 (5-15); ASPARTATE AMINO TRANSFERASE 16 U/L (5-40); CALCIUM 8.5 mg/dL (8.6-10.2); CARBON DIOXIDE 24 mEQ/L (20-30); CHLORIDE 112 mEQ/L (98-107); CREATININE 1.4 mg/dL (0.7-1.2); HEMOLYSIS 1; POTASSIUM 3.8 mEQ/L (3.4-4.9); SODIUM 149 mEQ/L (135-145)
[2016-04-09 08:00] VITALS: BP 139/59
[2016-04-09] MEDS: Memantine 10mg tab GT SCH ×2 (08:29→20:39)
[2016-04-09] MEDS: Docusate 100mg tablet GT SCH ×2 (08:30→19:03)
[2016-04-09] MEDS: Sertraline 50mg tab GT SCH (08:30)
[2016-04-09] MEDS: Heparin 5000 units/ml inj SUBQ SCH ×2 (08:31→20:43)
[2016-04-09 09:36] LABS: LYMPHOCYTES % (MANUAL) 5 % (20-45); NEUTROPHILS % (MANUAL) 89 % (45-75); TOTAL CELLS COUNTED 100
[2016-04-09 09:37] LABS: ANISOCYTOSIS 1+; BAND NEUTROPHILS % (MANUAL) 0 % (0-8); BASOPHILS % (MANUAL) 0 % (0-2); EOSINOPHILS % (MANUAL) 0 % (0-3); HYPOCHROMASIA 3+; PLATELET ESTIMATE ADEQUATE; PLATELET MORPHOLOGY NORMAL
--- NOTE | 2016-04-09 10:01 | Infectious Diseases Prog Note ---
Assessment/Plan Assessment/Plan antibiotics : vancomycin iv, zosyn, doxycycline A 1. pneumonia 2. respiratory failure 3. leucocytosis improving 4. CVA 5. HTN P 1. continue vancomycin iv, zosyn, doxycycline 2. will follow up cultures Subjective ROS Limited/Unobtainable: Yes Allergies: Coded Allergies: No Known Allergies (Unverified , 04/06/16) Objective Vital Signs Last 24 Hour Vital Signs Date Time Temp Pulse Resp B/P Pulse Ox O2 Delivery O2 Flow Rate FiO2 04/09/16 09:17 74 19 100 Facial 45 04/09/16 08:30 86 139/59 04/09/16 08:00 8.0 45 04/09/16 08:00 97.7 86 18 139/59 100 Bi-pap 04/09/16 07:03 73 19 100 Facial 45 04/09/16 07:02 73 19 100 Bi-pap 45 04/09/16 06:50 72 19 100 Bi-pap 45 04/09/16 05:07 78 16 100 Facial 45 04/09/16 04:03 98.8 76 20 142/58 96 Bi-pap 04/09/16 04:00 70 04/09/16 04:00 8.0 45 04/09/16 03:13 84 25 99 Bi-pap 45 04/09/16 03:13 88 25 100 Bi-pap 45 04/09/16 03:12 84 25 99 Full Face 45 04/09/16 01:30 86 27 100 Facial 45 04/09/16 00:06 97.9 67 21 134/53 95 Bi-pap 04/09/16 00:00 8.0 45 04/09/16 00:00 71 04/08/16 23:14 78 21 100 Bi-pap 45 04/08/16 23:13 71 21 99 Bi-pap 45 04/08/16 23:07 71 21 99 Full Face 45 04/08/16 21:47 82 23 98 Facial 45 04/08/16 20:00 68 04/08/16 20:00 8.0 45 04/08/16 19:30 80 22 98 Facial 45 04/08/16 19:00 97.3 76 18 157/78 99 Simple Mask 04/08/16 17:07 81 23 100 Facial 45 04/08/16 16:00 8.0 45 04/08/16 16:00 65 04/08/16 16:00 97.0 70 24 141/61 98 Room Air 04/08/16 15:44 80 22 100 Facial 45 04/08/16 13:00 78 21 100 Facial 45 04/08/16 12:00 8.0 45 04/08/16 12:00 98.2 76 19 116/61 97 Bi-pap 04/08/16 12:00 64 04/08/16 11:15 67 20 98 Facial 45 Height (Feet): 5 Height (Inches): 9.00 Weight (Pounds): 140 HEENT: other - on bipap Respiratory/Chest: lungs clear Cardiovascular: normal rate, regular rhythm, no gallop/murmur Abdomen: soft, non tender, other - GT Extremities: no edema Microbiology Date/Time Source Procedure Growth Status 04/08/16 05:05 Sputum Gram Stain - Final Resulted 04/08/16 05:05 Sputum Sputum Culture Pending Resulted 04/07/16 14:00 Nasal Nares Influenza Types A,B Antigen (MARIA ISABEL) - Final Complete Laboratory Tests Test 04/09/16 05:35 White Blood Count 17.6 K/UL (4.8-10.8) H Red Blood Count 2.93 M/UL (4.70-6.10) L Hemoglobin 9.5 G/DL (14.2-18.0) L Hematocrit 29.1 % (42.0-52.0) L Mean Corpuscular Volume 99 FL (80-99) Mean Corpuscular Hemoglobin 32.3 PG (27.0-31.0) H Mean Corpuscular Hemoglobin Concent 32.5 G/DL (32.0-36.0) Red Cell Distribution Width 13.3 % (11.6-14.8) Platelet Count 157 K/UL (150-450) Mean Platelet Volume 10.5 FL (6.5-10.1) H Neutrophils (%) (Auto) % (45.0-75.0) Lymphocytes (%) (Auto) % (20.0-45.0) Monocytes (%) (Auto) % (1.0-10.0) Eosinophils (%) (Auto) % (0.0-3.0) Basophils (%) (Auto) % (0.0-2.0) Differential Total Cells Counted 100 Neutrophils % (Manual) 89 % (45-75) H Lymphocytes % (Manual) 5 % (20-45) L Monocytes % (Manual) 6 % (1-10) Eosinophils % (Manual) 0 % (0-3) Basophils % (Manual) 0 % (0-2) Band Neutrophils 0 % (0-8) Platelet Estimate Adequate Platelet Morphology Normal Hypochromasia 3+ Anisocytosis 1+ Sodium Level 149 mEQ/L (135-145) H Potassium Level 3.8 mEQ/L (3.4-4.9) Chloride Level 112 mEQ/L (98-107) H Carbon Dioxide Level 24 mEQ/L (20-30) Anion Gap 13 (5-15) Blood Urea Nitrogen 39 mg/dL (7-23) H Creatinine 1.4 mg/dL (0.7-1.2) H Estimat Glomerular Filtration Rate mL/min (>60) Glucose Level 169 mg/dL (74-106) H Calcium Level 8.5 mg/dL (8.6-10.2) L Total Bilirubin < 0.2 mg/dL (0.0-1.2) Aspartate Amino Transf (AST/SGOT) 16 U/L (5-40) Alanine Aminotransferase (ALT/SGPT) 12 U/L (3-41) Alkaline Phosphatase 51 U/L (40-129) Total Protein 6.0 g/dL (6.6-8.7) L Albumin 2.8 g/dL (3.5-5.2) L Globulin 3.2 g/dL Albumin/Globulin Ratio 0.8 (1.0-2.7) L JAN WU Apr 09, 2016 10:01
--- NOTE | 2016-04-09 10:03 | General Progress Note ---
Assessment/Plan Problem List: (1) Pneumonia ICD Codes: J18.9 - Pneumonia, unspecified organism SNOMED: 974056131 (2) Sepsis ICD Codes: A41.9 - Sepsis, unspecified organism SNOMED: [id number] Qualifiers: Qualified Codes: A41.9 - Sepsis, unspecified organism Status: stable, progressing Assessment/Plan iv abx follow labs and abg wean bipap start feeds pulm and ID appreciated. follow up cultures ivf adjusted d/w son. aware of poor prognosis Subjective ROS Limited/Unobtainable: Yes Constitutional: Reports: malaise, weakness HEENT: Reports: no symptoms Cardiovascular: Reports: no symptoms Respiratory: Reports: cough, shortness of breath Gastrointestinal/Abdominal: Reports: difficulty swallowing Genitourinary: Reports: no symptoms Neurologic/Psychiatric: Reports: pre-existing deficit Endocrine: Reports: no symptoms Hematologic/Lymphatic: Reports: no symptoms Allergies: Coded Allergies: No Known Allergies (Unverified , 04/06/16) All Systems: reviewed and negative except above Subjective more lethargic. remains on bipap and iv abx. wbc trending down. Na up. no real change. Objective Last 24 Hour Vital Signs Date Time Temp Pulse Resp B/P Pulse Ox O2 Delivery O2 Flow Rate FiO2 04/09/16 09:17 74 19 100 Facial 45 04/09/16 08:30 86 139/59 04/09/16 08:00 85 04/09/16 08:00 8.0 45 04/09/16 08:00 97.7 86 18 139/59 100 Bi-pap 04/09/16 07:03 73 19 100 Facial 45 04/09/16 07:02 73 19 100 Bi-pap 45 04/09/16 06:50 72 19 100 Bi-pap 45 04/09/16 05:07 78 16 100 Facial 45 04/09/16 04:03 98.8 76 20 142/58 96 Bi-pap 04/09/16 04:00 70 04/09/16 04:00 8.0 45 04/09/16 03:13 84 25 99 Bi-pap 45 04/09/16 03:13 88 25 100 Bi-pap 45 04/09/16 03:12 84 25 99 Full Face 45 04/09/16 01:30 86 27 100 Facial 45 04/09/16 00:06 97.9 67 21 134/53 95 Bi-pap 04/09/16 00:00 8.0 45 04/09/16 00:00 71 04/08/16 23:14 78 21 100 Bi-pap 45 04/08/16 23:13 71 21 99 Bi-pap 45 04/08/16 23:07 71 21 99 Full Face 45 04/08/16 21:47 82 23 98 Facial 45 04/08/16 20:00 68 04/08/16 20:00 8.0 45 04/08/16 19:30 80 22 98 Facial 45 04/08/16 19:00 97.3 76 18 157/78 99 Simple Mask 04/08/16 17:07 81 23 100 Facial 45 04/08/16 16:00 8.0 45 04/08/16 16:00 65 04/08/16 16:00 97.0 70 24 141/61 98 Room Air 04/08/16 15:44 80 22 100 Facial 45 04/08/16 13:00 78 21 100 Facial 45 04/08/16 12:00 8.0 45 04/08/16 12:00 98.2 76 19 116/61 97 Bi-pap 04/08/16 12:00 64 04/08/16 11:15 67 20 98 Facial 45 Intake and Output 04/08/16 04/09/16 19:00 07:00 Intake Total 834 ml 981 ml Balance 834 ml 981 ml Intake Free Water 100 ml IV Total 834 ml 561 ml Tube Feeding 320 ml # Voids 1 7 Laboratory Tests 04/09/16 05:35: White Blood Count 17.6H, Red Blood Count 2.93L, Hemoglobin 9.5L, Hematocrit 29.1L, Mean Corpuscular Volume 99, Mean Corpuscular Hemoglobin 32.3H, Mean Corpuscular Hemoglobin Concent 32.5, Red Cell Distribution Width 13.3, Platelet Count 157, Mean Platelet Volume 10.5H, Neutrophils (%) (Auto) , Lymphocytes (%) (Auto) , Monocytes (%) (Auto) , Eosinophils (%) (Auto) , Basophils (%) (Auto) , Differential Total Cells Counted 100, Neutrophils % (Manual) 89H, Lymphocytes % (Manual) 5L, Monocytes % (Manual) 6, Eosinophils % (Manual) 0, Basophils % ( Manual) 0, Band Neutrophils 0, Platelet Estimate Adequate, Platelet Morphology Normal, Hypochromasia 3+, Anisocytosis 1+, Sodium Level 149H, Potassium Level 3.8, Chloride Level 112H, Carbon Dioxide Level 24, Anion Gap 13, Blood Urea Nitrogen 39H, Creatinine 1.4H, Estimat Glomerular Filtration Rate , Glucose Level 169H, Calcium Level 8.5L, Total Bilirubin < 0.2, Aspartate Amino Transf ( AST/SGOT) 16, Alanine Aminotransferase (ALT/SGPT) 12, Alkaline Phosphatase 51, Total Protein 6.0L, Albumin 2.8L, Globulin 3.2, Albumin/Globulin Ratio 0.8L Height (Feet): 5 Height (Inches): 9.00 Weight (Pounds): 140 Objective General Appearance: WD/WN, confused, thin Neck: supple Cardiovascular: regular rhythm Respiratory/Chest: rhonchi - bilaterally Abdomen: normal bowel sounds, non tender, soft, no organomegaly Edema: no edema noted Arm (L), no edema noted Arm (R), no edema noted Leg (L), no edema noted Leg (R), no edema noted Pedal (L), no edema noted Pedal (R), no edema noted Generalized Edema: trace edema Neurologic: unresponsive, aphasia CHET MALCOLM Apr 09, 2016 10:03
[2016-04-09] MEDS: Potassium Chloride 10 MEQ in D5 1/2NS 1,000 ML IV SCH (11:20)
[2016-04-09] MEDS: Vancomycin 750mg/D5W 250ml IVPB SCH ×2 (11:20)
--- NOTE | 2016-04-09 12:24 | Pulmonology Progress Note ---
Assessment/Plan Assessment/Plan IMPRESSION: 1. Possible pulmonary edema. 2. 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 3. Hyponatremia. 4. Acute renal failure. 5. Metabolic acidosis. 6. Significant acidemia. 7. Altered mental status. 8. Acute on chronic encephalopathy. 9. Underlying dementia. 10. Do not resuscitate status. PLAN recheck ABG today repeat chest XR still acidotic but DNR optimize monitor acid base status BIPAP as needed keep negative empiric antibiotics respiratory care impression, plan, and exam edited and reviewed in detail care discussed with RN Subjective ROS Limited/Unobtainable: Yes Allergies: Coded Allergies: No Known Allergies (Unverified , 04/06/16) Subjective still tachypneic Objective Last 24 Hour Vital Signs Date Time Temp Pulse Resp B/P Pulse Ox O2 Delivery O2 Flow Rate FiO2 04/09/16 11:10 73 19 100 Facial 45 04/09/16 11:10 74 19 100 Bi-pap 45 04/09/16 11:00 71 19 100 Bi-pap 45 04/09/16 09:17 74 19 100 Facial 45 04/09/16 08:30 86 139/59 04/09/16 08:00 85 04/09/16 08:00 8.0 45 04/09/16 08:00 97.7 86 18 139/59 100 Bi-pap 04/09/16 07:03 73 19 100 Facial 45 04/09/16 07:02 73 19 100 Bi-pap 45 04/09/16 06:50 72 19 100 Bi-pap 45 04/09/16 05:07 78 16 100 Facial 45 04/09/16 04:03 98.8 76 20 142/58 96 Bi-pap 04/09/16 04:00 70 04/09/16 04:00 8.0 45 04/09/16 03:13 84 25 99 Bi-pap 45 04/09/16 03:13 88 25 100 Bi-pap 45 04/09/16 03:12 84 25 99 Full Face 45 04/09/16 01:30 86 27 100 Facial 45 04/09/16 00:06 97.9 67 21 134/53 95 Bi-pap 04/09/16 00:00 8.0 45 04/09/16 00:00 71 04/08/16 23:14 78 21 100 Bi-pap 45 04/08/16 23:13 71 21 99 Bi-pap 45 04/08/16 23:07 71 21 99 Full Face 45 04/08/16 21:47 82 23 98 Facial 45 04/08/16 20:00 68 04/08/16 20:00 8.0 45 04/08/16 19:30 80 22 98 Facial 45 04/08/16 19:00 97.3 76 18 157/78 99 Simple Mask 04/08/16 17:07 81 23 100 Facial 45 04/08/16 16:00 8.0 45 04/08/16 16:00 65 04/08/16 16:00 97.0 70 24 141/61 98 Room Air 04/08/16 15:44 80 22 100 Facial 45 04/08/16 13:00 78 21 100 Facial 45 Intake and Output 04/08/16 04/09/16 19:00 07:00 Intake Total 834 ml 1006 ml Balance 834 ml 1006 ml Intake Free Water 100 ml IV Total 834 ml 586 ml Tube Feeding 320 ml # Voids 1 7 Objective GENERAL: A well-developed male. The patient appears to be chronically ill. no distress HEENT: negative. NECK: Supple. No adenopathy. Pupils are sluggish, but reactive. LUNGS: With persistent coarse breath sounds. some rhonchi and some crackles at both bases. CARDIAC: S1 and S2. Regular rhythm. Soft systolic murmur at the parasternal border. No rubs or gallops. ABDOMEN: Soft, nontender, and nondistended. G-tube in place. No hepatosplenomegaly. EXTREMITIES: No cyanosis, clubbing, or edema. NEUROLOGIC: Grossly nonfocal. Microbiology Date/Time Source Procedure Growth Status 04/08/16 05:05 Sputum Gram Stain - Final Resulted 04/08/16 05:05 Sputum Sputum Culture Pending Resulted 04/07/16 14:00 Nasal Nares Influenza Types A,B Antigen (MARIA ISABEL) - Final Complete Laboratory Tests 04/09/16 05:35: White Blood Count 17.6H, Red Blood Count 2.93L, Hemoglobin 9.5L, Hematocrit 29.1L, Mean Corpuscular Volume 99, Mean Corpuscular Hemoglobin 32.3H, Mean Corpuscular Hemoglobin Concent 32.5, Red Cell Distribution Width 13.3, Platelet Count 157, Mean Platelet Volume 10.5H, Neutrophils (%) (Auto) , Lymphocytes (%) (Auto) , Monocytes (%) (Auto) , Eosinophils (%) (Auto) , Basophils (%) (Auto) , Differential Total Cells Counted 100, Neutrophils % (Manual) 89H, Lymphocytes % (Manual) 5L, Monocytes % (Manual) 6, Eosinophils % (Manual) 0, Basophils % ( Manual) 0, Band Neutrophils 0, Platelet Estimate Adequate, Platelet Morphology Normal, Hypochromasia 3+, Anisocytosis 1+, Sodium Level 149H, Potassium Level 3.8, Chloride Level 112H, Carbon Dioxide Level 24, Anion Gap 13, Blood Urea Nitrogen 39H, Creatinine 1.4H, Estimat Glomerular Filtration Rate , Glucose Level 169H, Calcium Level 8.5L, Total Bilirubin < 0.2, Aspartate Amino Transf ( AST/SGOT) 16, Alanine Aminotransferase (ALT/SGPT) 12, Alkaline Phosphatase 51, Total Protein 6.0L, Albumin 2.8L, Globulin 3.2, Albumin/Globulin Ratio 0.8L 04/09/16 10:25: Vancomycin Level Trough 14.6H Current Medications Medications (Trade) Dose Ordered Sig/Yusra Route PRN Reason Start Time Stop Time Status Last Admin Dose Admin Acetaminophen (Tylenol) 650 mg Q4H PRN ORAL Mild Pain/Temp > 100.5 04/06/16 06:30 05/06/16 06:29 Albuterol/ Ipratropium 3 ml 3 ml Q4HRT N 04/08/16 11:00 04/13/16 10:59 04/09/16 11:09 Atenolol (Tenormin) 100 mg DAILY GT 04/06/16 10:30 05/06/16 10:29 04/09/16 08:30 Atorvastatin Calcium (Lipitor) 10 mg BEDTIME ORAL 04/06/16 21:00 05/06/16 20:59 04/08/16 21:10 Clopidogrel Bisulfate (Plavix) 75 mg DAILY GT 04/06/16 10:30 05/06/16 10:29 04/09/16 08:29 Docusate Sodium (Colace) 100 mg BID GT 04/06/16 10:00 05/06/16 09:59 04/09/16 08:30 Donepezil HCl (Aricept) 10 mg QHS GT 04/06/16 21:00 05/06/16 20:59 04/08/16 21:10 Doxycycline Monohydrate (Vibramycin) 100 mg EVERY 12 HOURS GT 04/07/16 11:00 04/14/16 10:59 04/09/16 08:29 Heparin Sodium (Porcine) (Heparin 5000 units/ml) 5,000 units EVERY 12 HOURS SUBQ 04/06/16 09:00 05/06/16 08:59 04/09/16 08:31 Memantine (Namenda) 10 mg Q12HR GT 04/06/16 12:00 05/06/16 11:59 04/09/16 08:29 Piperacillin Sod/ Tazobactam Sod/ Sodium Chloride (Zosyn/Sodium Chloride 100ml bag) 100 ml @ 25 mls/hr Q8H IVPB 04/07/16 12:00 04/14/16 11:59 04/09/16 03:59 Potassium Chloride/Dextrose/ Sodium Chloride (KCl/D5 0.45% NS) 1,005 ml @ 75 mls/hr [id number] IV 04/09/16 11:00 05/09/16 10:59 04/09/16 11:20 Sertraline HCl (Zoloft) 50 mg DAILY GT 04/06/16 10:30 05/06/16 10:29 04/09/16 08:30 Vancomycin HCl 750 mg/Dextrose 250 ml @ 167 mls/hr Q24H IVPB 04/07/16 11:00 04/12/16 10:59 04/09/16 11:20 Vancomycin HCl 1 ea 1 ea DAILY PRN MISC Per rx protocol 04/07/16 09:15 05/07/16 09:14 DULCE PRICE Apr 09, 2016 12:24
[2016-04-09 12:36] VITALS: BP 139/43
[2016-04-09] MEDS ORDERED: Heparin 2000 units/Ns 1000ml INJ ONE (13:00)
[2016-04-09] MEDS ORDERED: Lidocaine 1% Plain 30 ml INJ ONE (13:00)
[2016-04-09] MEDS ORDERED: Sodium Bicarbonate 8.4% 50ml Inj IV ONE (13:00)
[2016-04-09 13:24] LABS: ABG BASE EXCESS -2.2; ABG PCO2 50.7 mmHg (35.0-45.0)
[2016-04-09 13:25] LABS: ABG ALLEN TEST POSITIVE
[2016-04-09 16:00] VITALS: BP 159/74
[2016-04-09] MEDS ORDERED: NS 275ml ONE (16:22)
[2016-04-09] MEDS ORDERED: Sterile Water Irrig 1000ml IRRIG ONE (16:22)
[2016-04-09] MEDS ORDERED: Tubing IV Secondary IV ONE (16:22)
[2016-04-09 20:00] VITALS: BP 157/71
[2016-04-09] MEDS: Donepezil 10mg tab GT SCH (20:39)
[2016-04-10 00:11] VITALS: BP 156/82
[2016-04-10] MEDS: Potassium Chloride 10 MEQ in D5 1/2NS 1,000 ML IV SCH ×2 (00:24→13:48)
[2016-04-10] MEDS: DuoNeb 0.5-3(2.5)mg/3ml neb HHN SCH ×6 (03:11→23:14)
[2016-04-10 04:02] VITALS: BP 162/83
--- NOTE | 2016-04-10 07:04 | Pulmonology Progress Note ---
Assessment/Plan Assessment/Plan IMPRESSION: 1. Possible pulmonary edema. 2. 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 3. Hyponatremia. 4. Acute renal failure. 5. Metabolic acidosis. 6. Significant acidemia. 7. Altered mental status. 8. Acute on chronic encephalopathy. 9. Underlying dementia. 10. Do not resuscitate status. PLAN improved acid base repeat chest XR pending still acidotic but now improved optimize BIPAP as needed; hope to dc soon keep negative and monitor empiric antibiotics; cultures noted respiratory care impression, plan, and exam edited and reviewed in detail care discussed with RN Subjective Allergies: Coded Allergies: No Known Allergies (Unverified , 04/06/16) Subjective overall better more comfortable Objective Last 24 Hour Vital Signs Date Time Temp Pulse Resp B/P Pulse Ox O2 Delivery O2 Flow Rate FiO2 04/10/16 05:16 80 27 98 Facial 45 04/10/16 04:02 98.7 94 21 162/83 99 Bi-pap 04/10/16 04:00 8.0 45 04/10/16 04:00 89 04/10/16 03:19 80 24 99 Bi-pap 45 04/10/16 03:11 76 23 99 Bi-pap 45 04/10/16 03:10 76 23 99 Facial 45 04/10/16 01:10 82 23 99 Facial 45 04/10/16 00:11 97.9 87 20 156/82 98 Bi-pap 04/10/16 00:00 8.0 45 04/10/16 00:00 88 04/09/16 23:23 79 21 99 Bi-pap 45 04/09/16 23:15 76 28 98 Bi-pap 45 04/09/16 23:14 76 28 98 Facial 45 04/09/16 21:15 80 28 99 Facial 45 04/09/16 20:00 85 04/09/16 20:00 98.1 84 24 157/71 100 Bi-pap 04/09/16 20:00 8.0 45 04/09/16 18:59 76 20 100 Bi-pap 45 04/09/16 18:51 78 22 98 Bi-pap 45 04/09/16 18:50 78 22 98 Facial 45 04/09/16 17:01 77 22 98 Facial 45 04/09/16 16:00 8.0 45 04/09/16 16:00 76 04/09/16 16:00 97.9 82 24 159/74 Bi-pap 04/09/16 15:26 79 22 100 Bi-pap 45 04/09/16 15:16 79 25 96 Bi-pap 45 04/09/16 15:15 78 25 96 Facial 45 04/09/16 13:23 82 24 98 Facial 45 04/09/16 12:36 97.1 78 21 139/43 100 Bi-pap 45 04/09/16 12:00 76 04/09/16 12:00 8.0 45 04/09/16 11:10 73 19 100 Facial 45 04/09/16 11:10 74 19 100 Bi-pap 45 04/09/16 11:00 71 19 100 Bi-pap 45 04/09/16 09:17 74 19 100 Facial 45 04/09/16 08:30 86 139/59 04/09/16 08:00 85 04/09/16 08:00 8.0 45 04/09/16 08:00 97.7 86 18 139/59 100 Bi-pap 04/09/16 07:03 73 19 100 Facial 45 Intake and Output 04/09/16 04/10/16 19:00 07:00 Intake Total 1210 ml 1100 ml Balance 1210 ml 1100 ml Intake Free Water 250 ml 200 ml IV Total 300 ml 350 ml Tube Feeding 660 ml 550 ml # Voids 3 # Bowel Movements 2 Objective GENERAL: A well-developed male. The patient appears to be chronically ill. no distress and comfortable on BIPAP HEENT: negative. NECK: Supple. No adenopathy. Pupils are sluggish, but reactive. LUNGS: reduced breath sounds. some rhonchi and some crackles at both bases. CARDIAC: S1 and S2. Regular rhythm. Soft systolic murmur at the parasternal border. No rubs or gallops. ABDOMEN: Soft, nontender, and nondistended. G-tube in place. No hepatosplenomegaly. EXTREMITIES: No cyanosis, clubbing, or edema. NEUROLOGIC: Grossly nonfocal. Microbiology Date/Time Source Procedure Growth Status 04/08/16 05:05 Sputum Gram Stain - Final Resulted 04/08/16 05:05 Sputum Sputum Culture Pending Resulted 04/07/16 14:00 Nasal Nares Influenza Types A,B Antigen (MARIA ISABEL) - Final Complete Laboratory Tests 04/09/16 10:25: Vancomycin Level Trough 14.6H 04/09/16 13:10: Arterial Blood pH 7.300L, Arterial Blood Partial Pressure CO2 50.7H, Arterial Blood Partial Pressure O2 78.5, Arterial Blood HCO3 24.4, Arterial Blood Oxygen Saturation 95.0, Arterial Blood Base Excess -2.2, Shine Test Positive Current Medications Medications (Trade) Dose Ordered Sig/Yusra Route PRN Reason Start Time Stop Time Status Last Admin Dose Admin Acetaminophen (Tylenol) 650 mg Q4H PRN ORAL Mild Pain/Temp > 100.5 04/06/16 06:30 05/06/16 06:29 Albuterol/ Ipratropium 3 ml 3 ml Q4HRT HHN 04/08/16 11:00 04/13/16 10:59 04/10/16 03:11 Atenolol (Tenormin) 100 mg DAILY GT 04/06/16 10:30 05/06/16 10:29 04/09/16 08:30 Atorvastatin Calcium (Lipitor) 10 mg BEDTIME ORAL 04/06/16 21:00 05/06/16 20:59 04/09/16 20:40 Clopidogrel Bisulfate (Plavix) 75 mg DAILY GT 04/06/16 10:30 05/06/16 10:29 04/09/16 08:29 Docusate Sodium (Colace) 100 mg BID GT 04/06/16 10:00 05/06/16 09:59 04/09/16 19:03 Donepezil HCl (Aricept) 10 mg QHS GT 04/06/16 21:00 05/06/16 20:59 04/09/16 20:39 Doxycycline Monohydrate (Vibramycin) 100 mg EVERY 12 HOURS GT 04/07/16 11:00 04/14/16 10:59 04/09/16 20:39 Heparin Sodium (Porcine) (Heparin 5000 units/ml) 5,000 units EVERY 12 HOURS SUBQ 04/06/16 09:00 05/06/16 08:59 04/09/16 20:43 Heparin Sodium/ Sodium Chloride (Heparin 2000 units/Ns 1000ml premix) 2,000 unit ONCE ONCE INJ 04/12/16 09:00 04/12/16 09:01 Lidocaine HCl (Xylocaine 1% 30ml) 30 ml ONCE ONCE INJ 04/12/16 09:00 1/3/17 09:01 Memantine (Namenda) 10 mg Q12HR GT 04/06/16 12:00 05/06/16 11:59 04/09/16 20:39 Piperacillin Sod/ Tazobactam Sod/ Sodium Chloride (Zosyn/Sodium Chloride 100ml bag) 100 ml @ 25 mls/hr Q8H IVPB 04/07/16 12:00 04/14/16 11:59 04/10/16 03:58 Potassium Chloride/Dextrose/ Sodium Chloride (KCl/D5 0.45% NS) 1,005 ml @ 75 mls/hr [id number] IV 04/09/16 11:00 05/09/16 10:59 04/09/16 11:20 Sertraline HCl (Zoloft) 50 mg DAILY GT 04/06/16 10:30 05/06/16 10:29 04/09/16 08:30 Sodium Bicarbonate (Sodium Bicarbonate) 50 ml ONCE ONCE IV 04/12/16 09:00 04/12/16 09:01 Vancomycin HCl 750 mg/Dextrose 250 ml @ 167 mls/hr Q24H IVPB 04/07/16 11:00 04/12/16 10:59 04/09/16 11:20 Vancomycin HCl 1 ea 1 ea DAILY PRN MISC Per rx protocol 04/07/16 09:15 05/07/16 09:14 DULCE PRICE Apr 10, 2016 07:04
[2016-04-10 07:53] VITALS: BP 171/72
[2016-04-10] MEDS: Sertraline 50mg tab GT SCH (08:53)
[2016-04-10] MEDS: Memantine 10mg tab GT SCH ×2 (08:53→21:05)
[2016-04-10] MEDS: Docusate 100mg tablet GT SCH ×2 (08:54→17:13)
[2016-04-10] MEDS: Heparin 5000 units/ml inj SUBQ SCH ×2 (08:57→21:07)
[2016-04-10 09:20] LABS: MEAN CORPUSCULAR VOLUME 100 FL (80-99); PLATELET COUNT 180 K/UL (150-450); RED BLOOD COUNT 3.17 M/UL (4.70-6.10); RED CELL DISTRIBUTION WIDTH 13.4 % (11.6-14.8); WHITE BLOOD COUNT 12.1 K/UL (4.8-10.8)
[2016-04-10 09:42] LABS: ALANINE AMINOTRANSFERASE 16 U/L (3-41); ALBUMIN/GLOBULIN RATIO 0.7 (1.0-2.7); ANION GAP -15 (5-15); ASPARTATE AMINO TRANSFERASE 23 U/L (5-40); CALCIUM 8.5 mg/dL (8.6-10.2); CARBON DIOXIDE 23 mEQ/L (20-30); CHLORIDE 128 mEQ/L (98-107); CREATININE 1.2 mg/dL (0.7-1.2); HEMOLYSIS 30; POTASSIUM 3.5 mEQ/L (3.4-4.9); SODIUM 136 mEQ/L (135-145); TOTAL PROTEIN 6.3 g/dL (6.6-8.7)
[2016-04-10 09:49] LABS: BAND NEUTROPHILS % (MANUAL) 21 % (0-8); BASOPHILS % (MANUAL) 0 % (0-2); EOSINOPHILS % (MANUAL) 0 % (0-3); HYPOCHROMASIA 1+; LYMPHOCYTES % (MANUAL) 10 % (20-45); MYELOCYTES % 3 % (0-0); NEUTROPHILS % (MANUAL) 58 % (45-75); PLATELET ESTIMATE ADEQUATE; PLATELET MORPHOLOGY NORMAL; TOTAL CELLS COUNTED 100
[2016-04-10 09:50] LABS: ANISOCYTOSIS 1+; POLYCHROMASIA OCCASIONAL
--- NOTE | 2016-04-10 09:52 | Diagnostic Imaging Report ---
Indication: SOB Technique: One view of the chest Comparison: 04/06/2016 Findings: Interim development of infiltrate in the right upper lobe. There is persistent consolidation at the left mid and lower lung. There there are a few scattered patchy or nodular opacities at the right lung base, possibly evident previously but the visualized currently. Is persistent left apical pleural thickening and calcific pleural thickening at the left lung base and lateral pleural surface. Impression: Interim development of consolidation within the right upper lobe, consistent with pneumonia Other stable findings as described, including bilateral parenchymal and left-sided pleural disease
[2016-04-10] MEDS: Vancomycin 750mg/D5W 250ml IVPB SCH ×2 (10:02)
[2016-04-10 11:36] VITALS: BP 140/68
[2016-04-10 12:08] LABS: ABG PCO2 61.1 mmHg (35.0-45.0)
[2016-04-10 12:09] LABS: ABG ALLEN TEST POSITIVE; ABG BASE EXCESS -1.7
[2016-04-10 14:16] LABS: ABG ALLEN TEST POSITIVE; ABG BASE EXCESS -3.2; ABG PCO2 69.8 mmHg (35.0-45.0)
[2016-04-10 16:00] VITALS: BP 114/64
[2016-04-10 20:04] VITALS: BP 123/60
[2016-04-10] MEDS: Donepezil 10mg tab GT SCH (21:05)
--- NOTE | 2016-04-10 21:54 | General Progress Note ---
Assessment/Plan Problem List: (1) Pneumonia ICD Codes: J18.9 - Pneumonia, unspecified organism SNOMED: 456315747 (2) Sepsis ICD Codes: A41.9 - Sepsis, unspecified organism SNOMED: 32614733 Qualifiers: Qualified Codes: A41.9 - Sepsis, unspecified organism Status: stable, progressing Assessment/Plan iv abx follow labs and abg wean bipap start feeds follow up cultures ivf monitor labs, abg cxr etc dnr d/w son. aware of poor prognosis Subjective ROS Limited/Unobtainable: Yes Constitutional: Reports: malaise, weakness HEENT: Reports: no symptoms Cardiovascular: Reports: no symptoms Respiratory: Reports: cough, shortness of breath Gastrointestinal/Abdominal: Reports: no symptoms Genitourinary: Reports: no symptoms Neurologic/Psychiatric: Reports: pre-existing deficit Endocrine: Reports: no symptoms Hematologic/Lymphatic: Reports: no symptoms Allergies: Coded Allergies: No Known Allergies (Unverified , 04/06/16) All Systems: reviewed and negative except above Subjective no events. remains on bipap and iv abx. wbc trending down. Na better up. no real change. Objective Last 24 Hour Vital Signs Date Time Temp Pulse Resp B/P Pulse Ox O2 Delivery O2 Flow Rate FiO2 04/10/16 21:26 85 32 Facial 45 04/10/16 20:04 98.6 89 26 123/60 100 Bi-pap 45 04/10/16 19:24 86 25 Bi-pap 45 04/10/16 19:12 90 25 Bi-pap 45 04/10/16 19:09 90 27 Facial 45 04/10/16 19:08 Bi-pap 45 04/10/16 19:07 100 Bi-pap 45 04/10/16 16:44 101 26 Facial 45 04/10/16 16:00 97.9 89 28 114/64 98 Nasal Cannula 4.5 04/10/16 16:00 8.0 45 04/10/16 15:35 101 26 Bi-pap 45 04/10/16 15:29 104 26 Facial 45 04/10/16 15:25 104 26 Bi-pap 45 04/10/16 12:37 112 24 92 Facial 45 04/10/16 12:00 112 04/10/16 12:00 8.0 45 04/10/16 11:44 107 21 99 Bi-pap 45 04/10/16 11:36 97.1 112 29 140/68 89 Bi-pap 45 04/10/16 11:35 108 26 98 Bi-pap 45 04/10/16 11:28 108 26 97 Facial 45 04/10/16 10:03 124 29 94 Facial 45 04/10/16 09:08 Venturi Mask 14.0 50 04/10/16 09:07 93 Venturi Mask 14.0 50 04/10/16 08:53 96 171/72 04/10/16 08:00 8.0 45 04/10/16 08:00 95 04/10/16 07:53 97.3 96 25 171/72 Bi-pap 45 04/10/16 07:40 95 25 99 Bi-pap 45 04/10/16 07:39 91 23 98 Facial 45 04/10/16 07:30 91 23 99 Bi-pap 45 04/10/16 05:16 80 27 98 Facial 45 04/10/16 04:02 98.7 94 21 162/83 99 Bi-pap 04/10/16 04:00 8.0 45 04/10/16 04:00 89 04/10/16 03:19 80 24 99 Bi-pap 45 04/10/16 03:11 76 23 99 Bi-pap 45 04/10/16 03:10 76 23 99 Facial 45 04/10/16 01:10 82 23 99 Facial 45 04/10/16 00:11 97.9 87 20 156/82 98 Bi-pap 04/10/16 00:00 8.0 45 04/10/16 00:00 88 04/09/16 23:23 79 21 99 Bi-pap 45 04/09/16 23:15 76 28 98 Bi-pap 45 04/09/16 23:14 76 28 98 Facial 45 Intake and Output 04/09/16 04/10/16 19:00 07:00 Intake Total 1210 ml 1180 ml Balance 1210 ml 1180 ml Intake Free Water 250 ml 200 ml IV Total 300 ml 375 ml Tube Feeding 660 ml 605 ml # Voids 3 # Bowel Movements 3 Laboratory Tests 04/10/16 09:10: White Blood Count 12.1H, Red Blood Count 3.17L, Hemoglobin 9.8L, Hematocrit 31.7L, Mean Corpuscular Volume 100H, Mean Corpuscular Hemoglobin 31.0, Mean Corpuscular Hemoglobin Concent 31.0L, Red Cell Distribution Width 13.4, Platelet Count 180, Mean Platelet Volume 10.0, Neutrophils (%) (Auto) , Lymphocytes (%) (Auto) , Monocytes (%) (Auto) , Eosinophils (%) (Auto) , Basophils (%) (Auto) , Differential Total Cells Counted 100, Neutrophils % ( Manual) 58, Lymphocytes % (Manual) 10L, Monocytes % (Manual) 8, Eosinophils % ( Manual) 0, Basophils % (Manual) 0, Myelocytes % 3H, Band Neutrophils 21H, Platelet Estimate Adequate, Platelet Morphology Normal, Polychromasia Occasional , Hypochromasia 1+, Anisocytosis 1+, Sodium Level 136, Potassium Level 3.5, Chloride Level 128H, Carbon Dioxide Level 23, Anion Gap -15L, Blood Urea Nitrogen 30H, Creatinine 1.2, Estimat Glomerular Filtration Rate , Glucose Level 186H, Calcium Level 8.5L, Total Bilirubin 0.2, Aspartate Amino Transf (AST /SGOT) 23, Alanine Aminotransferase (ALT/SGPT) 16, Alkaline Phosphatase 76, Total Protein 6.3L, Albumin 2.6L, Globulin 3.7, Albumin/Globulin Ratio 0.7L 04/10/16 11:55: Arterial Blood pH 7.251L, Arterial Blood Partial Pressure CO2 61.1*H, Arterial Blood Partial Pressure O2 60.3L, Arterial Blood HCO3 26.3H, Arterial Blood Oxygen Saturation 91.0L, Arterial Blood Base Excess -1.7, Shine Test Positive 04/10/16 14:00: Arterial Blood pH 7.185*L, Arterial Blood Partial Pressure CO2 69.8*H, Arterial Blood Partial Pressure O2 67.3L, Arterial Blood HCO3 25.8, Arterial Blood Oxygen Saturation 92.1, Arterial Blood Base Excess -3.2, Shine Test Positive Height (Feet): 5 Height (Inches): 9.00 Weight (Pounds): 140 Objective General Appearance: WD/WN, confused, thin Neck: supple Cardiovascular: regular rhythm Respiratory/Chest: rhonchi - bilaterally Abdomen: normal bowel sounds, non tender, soft, no organomegaly Edema: no edema noted Arm (L), no edema noted Arm (R), no edema noted Leg (L), no edema noted Leg (R), no edema noted Pedal (L), no edema noted Pedal (R), no edema noted Generalized Edema: trace edema Neurologic: unresponsive, aphasia CHET MALCOLM Apr 10, 2016 21:54
[2016-04-11 00:08] VITALS: BP 124/65
[2016-04-11] MEDS: DuoNeb 0.5-3(2.5)mg/3ml neb HHN SCH ×6 (03:34→23:00)
[2016-04-11 04:03] VITALS: BP 116/56
[2016-04-11] MEDS: Potassium Chloride 10 MEQ in D5 1/2NS 1,000 ML IV SCH ×2 (04:26→16:36)
--- NOTE | 2016-04-11 07:31 | General Progress Note ---
Assessment/Plan Problem List: (1) Pneumonia ICD Codes: J18.9 - Pneumonia, unspecified organism SNOMED: [id number] (2) Sepsis ICD Codes: A41.9 - Sepsis, unspecified organism SNOMED: [id number] Qualifiers: Qualified Codes: A41.9 - Sepsis, unspecified organism Assessment/Plan iv abx follow labs and abg wean bipap as able gt feeds follow up culture heplock ivf monitor labs, abg cxr etc dnr d/w son. aware of poor prognosis Subjective ROS Limited/Unobtainable: No Constitutional: Reports: malaise, weakness HEENT: Reports: no symptoms Cardiovascular: Reports: no symptoms Respiratory: Reports: no symptoms Gastrointestinal/Abdominal: Reports: difficulty swallowing Genitourinary: Reports: no symptoms Neurologic/Psychiatric: Reports: pre-existing deficit Endocrine: Reports: no symptoms Hematologic/Lymphatic: Reports: anemia Allergies: Coded Allergies: No Known Allergies (Unverified , 04/06/16) All Systems: reviewed and negative except above Subjective no events. remains on bipap and iv abx. wbc trending down. labs pending. seems much less congested. Objective Last 24 Hour Vital Signs Date Time Temp Pulse Resp B/P Pulse Ox O2 Delivery O2 Flow Rate FiO2 04/11/16 05:27 82 22 Facial 45 04/11/16 04:03 98.3 77 19 116/56 100 Bi-pap 04/11/16 04:00 76 04/11/16 04:00 8.0 45 04/11/16 03:39 80 24 Bi-pap 45 04/11/16 03:34 78 26 Bi-pap 45 04/11/16 03:34 78 26 Facial 45 04/11/16 01:11 84 20 Facial 45 04/11/16 00:08 99.0 85 21 124/65 100 Bi-pap 04/11/16 00:00 8.0 45 04/10/16 23:22 86 25 Bi-pap 45 04/10/16 23:14 84 25 Bi-pap 45 04/10/16 23:14 82 25 Facial 45 04/10/16 21:26 85 32 Facial 45 04/10/16 20:04 98.6 89 26 123/60 100 Bi-pap 45 04/10/16 20:00 8.0 45 04/10/16 20:00 86 04/10/16 19:24 86 25 Bi-pap 45 04/10/16 19:12 90 25 Bi-pap 45 04/10/16 19:09 90 27 Facial 45 04/10/16 19:08 Bi-pap 45 04/10/16 19:07 100 Bi-pap 45 04/10/16 16:44 101 26 Facial 45 04/10/16 16:00 97.9 89 28 114/64 98 Nasal Cannula 4.5 04/10/16 16:00 8.0 45 04/10/16 15:35 101 26 Bi-pap 45 04/10/16 15:29 104 26 Facial 45 04/10/16 15:25 104 26 Bi-pap 45 04/10/16 12:37 112 24 92 Facial 45 04/10/16 12:00 112 04/10/16 12:00 8.0 45 04/10/16 11:44 107 21 99 Bi-pap 45 04/10/16 11:36 97.1 112 29 140/68 89 Bi-pap 45 04/10/16 11:35 108 26 98 Bi-pap 45 04/10/16 11:28 108 26 97 Facial 45 04/10/16 10:03 124 29 94 Facial 45 04/10/16 09:08 Venturi Mask 14.0 50 04/10/16 09:07 93 Venturi Mask 14.0 50 04/10/16 08:53 96 171/72 04/10/16 08:00 8.0 45 04/10/16 08:00 95 04/10/16 07:53 97.3 96 25 171/72 Bi-pap 45 04/10/16 07:40 95 25 99 Bi-pap 45 04/10/16 07:39 91 23 98 Facial 45 04/10/16 07:30 91 23 99 Bi-pap 45 Intake and Output 04/10/16 04/11/16 19:00 07:00 Intake Total 584 ml 440 ml Balance 584 ml 440 ml IV Total 584 ml 275 ml Tube Feeding 165 ml # Voids 2 1 # Bowel Movements 1 Laboratory Tests 04/10/16 09:10: White Blood Count 12.1H, Red Blood Count 3.17L, Hemoglobin 9.8L, Hematocrit 31.7L, Mean Corpuscular Volume 100H, Mean Corpuscular Hemoglobin 31.0, Mean Corpuscular Hemoglobin Concent 31.0L, Red Cell Distribution Width 13.4, Platelet Count 180, Mean Platelet Volume 10.0, Neutrophils (%) (Auto) , Lymphocytes (%) (Auto) , Monocytes (%) (Auto) , Eosinophils (%) (Auto) , Basophils (%) (Auto) , Differential Total Cells Counted 100, Neutrophils % ( Manual) 58, Lymphocytes % (Manual) 10L, Monocytes % (Manual) 8, Eosinophils % ( Manual) 0, Basophils % (Manual) 0, Myelocytes % 3H, Band Neutrophils 21H, Platelet Estimate Adequate, Platelet Morphology Normal, Polychromasia Occasional , Hypochromasia 1+, Anisocytosis 1+, Sodium Level 136, Potassium Level 3.5, Chloride Level 128H, Carbon Dioxide Level 23, Anion Gap -15L, Blood Urea Nitrogen 30H, Creatinine 1.2, Estimat Glomerular Filtration Rate , Glucose Level 186H, Calcium Level 8.5L, Total Bilirubin 0.2, Aspartate Amino Transf (AST /SGOT) 23, Alanine Aminotransferase (ALT/SGPT) 16, Alkaline Phosphatase 76, Total Protein 6.3L, Albumin 2.6L, Globulin 3.7, Albumin/Globulin Ratio 0.7L 04/10/16 11:55: Arterial Blood pH 7.251L, Arterial Blood Partial Pressure CO2 61.1*H, Arterial Blood Partial Pressure O2 60.3L, Arterial Blood HCO3 26.3H, Arterial Blood Oxygen Saturation 91.0L, Arterial Blood Base Excess -1.7, Shine Test Positive 04/10/16 14:00: Arterial Blood pH 7.185*L, Arterial Blood Partial Pressure CO2 69.8*H, Arterial Blood Partial Pressure O2 67.3L, Arterial Blood HCO3 25.8, Arterial Blood Oxygen Saturation 92.1, Arterial Blood Base Excess -3.2, Shine Test Positive 04/11/16 06:15: White Blood Count [Pending], Red Blood Count [Pending], Hemoglobin [Pending], Hematocrit [Pending], Mean Corpuscular Volume [Pending], Mean Corpuscular Hemoglobin [Pending], Mean Corpuscular Hemoglobin Concent [Pending], Red Cell Distribution Width [Pending], Platelet Count [Pending], Mean Platelet Volume [ Pending], Neutrophils (%) (Auto) [Pending], Lymphocytes (%) (Auto) [Pending], Monocytes (%) (Auto) [Pending], Eosinophils (%) (Auto) [Pending], Basophils (%) (Auto) [Pending], Sodium Level [Pending], Potassium Level [Pending], Chloride Level [Pending], Carbon Dioxide Level [Pending], Blood Urea Nitrogen [Pending], Creatinine [Pending], Estimat Glomerular Filtration Rate [Pending], Glucose Level [Pending], Calcium Level [Pending], Total Bilirubin [Pending], Aspartate Amino Transf (AST/SGOT) [Pending], Alanine Aminotransferase (ALT/SGPT) [Pending] , Alkaline Phosphatase [Pending], Total Protein [Pending], Albumin [Pending], Globulin [Pending], Prothrombin Time [Pending], Prothromb Time International Ratio [Pending] Height (Feet): 5 Height (Inches): 9.00 Weight (Pounds): 140 Objective General Appearance: WD/WN, confused, thin Neck: supple Cardiovascular: regular rhythm Respiratory/Chest: rhonchi - bilaterally Abdomen: normal bowel sounds, non tender, soft, no organomegaly Edema: no edema noted Arm (L), no edema noted Arm (R), no edema noted Leg (L), no edema noted Leg (R), no edema noted Pedal (L), no edema noted Pedal (R), no edema noted Generalized Edema: trace edema Neurologic: unresponsive, aphasia CHET MALCOLM Apr 11, 2016 07:31
[2016-04-11 07:44] LABS: ABG BASE EXCESS 0.1
[2016-04-11 07:45] LABS: ABG ALLEN TEST POSITIVE
[2016-04-11 07:45] LABS: BASOPHILS % (AUTO) 0.8 % (0.0-2.0); EOSINOPHILS % (AUTO) 0.2 % (0.0-3.0); LYMPHOCYTES % (AUTO) 14.5 % (20.0-45.0); MEAN CORPUSCULAR HEMOGLOBIN 31.4 PG (27.0-31.0); MEAN CORPUSCULAR HGB CONC 31.1 G/DL (32.0-36.0); MEAN CORPUSCULAR VOLUME 101 FL (80-99); MEAN PLATELET VOLUME 8.9 FL (6.5-10.1); MONOCYTES % (AUTO) 10.9 % (1.0-10.0); NEUTROPHILS % (AUTO) 73.6 % (45.0-75.0); PLATELET COUNT 166 K/UL (150-450); RED BLOOD COUNT 3.15 M/UL (4.70-6.10); RED CELL DISTRIBUTION WIDTH 13.7 % (11.6-14.8); WHITE BLOOD COUNT 8.7 K/UL (4.8-10.8)
[2016-04-11 08:00] LABS: ALANINE AMINOTRANSFERASE 34 U/L (3-41); ALBUMIN/GLOBULIN RATIO 0.6 (1.0-2.7); ANION GAP 12 (5-15); ASPARTATE AMINO TRANSFERASE 45 U/L (5-40); CALCIUM 8.5 mg/dL (8.6-10.2); CARBON DIOXIDE 26 mEQ/L (20-30); CHLORIDE 117 mEQ/L (98-107); CREATININE 1.4 mg/dL (0.7-1.2); HEMOLYSIS 8; POTASSIUM 3.8 mEQ/L (3.4-4.9); SODIUM 155 mEQ/L (135-145)
[2016-04-11 08:01] LABS: PROTHROMBIN TIME 10.3 SEC (9.30-11.50)
[2016-04-11 08:15] VITALS: BP 121/59
--- NOTE | 2016-04-11 10:08 | Infectious Diseases Prog Note ---
"Assessment/Plan Assessment/Plan antibiotics : vancomycin iv, zosyn, doxycycline A 1. MRSA | gram negative pneumonia 2. respiratory failure 3. leucocytosis improving 4. CVA 5. HTN 6. hypernatremia P 1. continue vancomycin iv, zosyn 2. d/c doxycycline 3. will follow up cultures Subjective ROS Limited/Unobtainable: Yes Allergies: Coded Allergies: No Known Allergies (Unverified , 04/06/16) Objective Vital Signs Last 24 Hour Vital Signs Date Time Temp Pulse Resp B/P Pulse Ox O2 Delivery O2 Flow Rate FiO2 04/11/16 09:00 80 20 Facial 45 04/11/16 07:52 79 18 Facial 45 04/11/16 07:25 79 18 Bi-pap 45 04/11/16 07:20 80 18 99 Bi-pap 45 04/11/16 05:27 82 22 Facial 45 04/11/16 04:03 98.3 77 19 116/56 100 Bi-pap 04/11/16 04:00 76 04/11/16 04:00 8.0 45 04/11/16 03:39 80 24 Bi-pap 45 04/11/16 03:34 78 26 Bi-pap 45 04/11/16 03:34 78 26 Facial 45 04/11/16 01:11 84 20 Facial 45 04/11/16 00:08 99.0 85 21 124/65 100 Bi-pap 04/11/16 00:00 8.0 45 04/10/16 23:22 86 25 Bi-pap 45 04/10/16 23:14 84 25 Bi-pap 45 04/10/16 23:14 82 25 Facial 45 04/10/16 21:26 85 32 Facial 45 04/10/16 20:04 98.6 89 26 123/60 100 Bi-pap 45 04/10/16 20:00 8.0 45 04/10/16 20:00 86 04/10/16 19:24 86 25 Bi-pap 45 04/10/16 19:12 90 25 Bi-pap 45 04/10/16 19:09 90 27 Facial 45 04/10/16 19:08 Bi-pap 45 04/10/16 19:07 100 Bi-pap 45 04/10/16 16:44 101 26 Facial 45 04/10/16 16:00 97.9 89 28 114/64 98 Nasal Cannula 4.5 04/10/16 16:00 8.0 45 04/10/16 15:35 101 26 Bi-pap 45 04/10/16 15:29 104 26 Facial 45 04/10/16 15:25 104 26 Bi-pap 45 04/10/16 12:37 112 24 92 Facial 45 04/10/16 12:00 112 04/10/16 12:00 8.0 45 04/10/16 11:44 107 21 99 Bi-pap 45 04/10/16 11:36 97.1 112 29 140/68 89 Bi-pap 45 04/10/16 11:35 108 26 98 Bi-pap 45 04/10/16 11:28 108 26 97 Facial 45 Height (Feet): 5 Height (Inches): 9.00 Weight (Pounds): 140 HEENT: other - on bipap Respiratory/Chest: lungs clear Cardiovascular: normal rate, regular rhythm, no gallop/murmur Abdomen: soft, non tender, other - GT Extremities: no edema Laboratory Tests Test 04/10/16 11:55 04/10/16 14:00 04/11/16 06:15 04/11/16 07:40 Arterial Blood pH 7.251 (7.350-7.450) 7.185 (7.350-7.450) 7.330 (7.350-7.450) Arterial Blood Partial Pressure CO2 61.1 mmHg (35.0-45.0) *H 69.8 mmHg (35.0-45.0) *H 50.0 mmHg (35.0-45.0) H Arterial Blood Partial Pressure O2 60.3 mmHg (75.0-100.0) L 67.3 mmHg (75.0-100.0) L 83.3 mmHg (75.0-100.0) Arterial Blood HCO3 26.3 mmol/L (22.0-26.0) H 25.8 mmol/L (22.0-26.0) 26.2 mmol/L (22.0-26.0) H Arterial Blood Oxygen Saturation 91.0 % (92.0-98.0) L 92.1 % (92.0-98.0) 96.3 % (92.0-98.0) Arterial Blood Base Excess -1.7 -3.2 0.1 Shine Test Positive Positive Positive White Blood Count 8.7 K/UL (4.8-10.8) Red Blood Count 3.15 M/UL (4.70-6.10) L Hemoglobin 9.9 G/DL (14.2-18.0) L Hematocrit 31.9 % (42.0-52.0) L Mean Corpuscular Volume 101 FL (80-99) H Mean Corpuscular Hemoglobin 31.4 PG (27.0-31.0) H Mean Corpuscular Hemoglobin Concent 31.1 G/DL (32.0-36.0) L Red Cell Distribution Width 13.7 % (11.6-14.8) Platelet Count 166 K/UL (150-450) Mean Platelet Volume 8.9 FL (6.5-10.1) Neutrophils (%) (Auto) 73.6 % (45.0-75.0) Lymphocytes (%) (Auto) 14.5 % (20.0-45.0) L Monocytes (%) (Auto) 10.9 % (1.0-10.0) H Eosinophils (%) (Auto) 0.2 % (0.0-3.0) Basophils (%) (Auto) 0.8 % (0.0-2.0) Prothrombin Time 10.3 SEC (9.30-11.50) Prothromb Time International Ratio 1.0 (0.9-1.1) Sodium Level 155 mEQ/L (135-145) #H Potassium Level 3.8 mEQ/L (3.4-4.9) Chloride Level 117 mEQ/L (98-107) H Carbon Dioxide Level 26 mEQ/L (20-30) Anion Gap 12 (5-15) Blood Urea Nitrogen 38 mg/dL (7-23) H Creatinine 1.4 mg/dL (0.7-1.2) H Estimat Glomerular Filtration Rate mL/min (>60) Glucose Level 183 mg/dL (74-106) H Calcium Level 8.5 mg/dL (8.6-10.2) L Total Bilirubin < 0.2 mg/dL (0.0-1.2) Aspartate Amino Transf (AST/SGOT) 45 U/L (5-40) H Alanine Aminotransferase (ALT/SGPT) 34 U/L (3-41) Alkaline Phosphatase 86 U/L (40-129) Total Protein 6.0 g/dL (6.6-8.7) L Albumin 2.4 g/dL (3.5-5.2) L Globulin 3.6 g/dL Albumin/Globulin Ratio 0.6 (1.0-2.7) L JAN WU Apr 11, 2016 10:08"
--- NOTE | 2016-04-11 10:17 | Diagnostic Imaging Report ---
Indication: SOB Technique: One view of the chest Comparison: 04/09/2016 Findings: There is persistent right upper lobe parenchymal consolidation. There is increased consolidation in the right lower lobe. There is decreased consolidation of the left upper lobe, consistent consolidation of the left lung base. Pleural calcifications on the left are unchanged. The heart remains borderline enlarged.. Impression: Shifting infiltrates, worse at the right lung base, improved in the left upper lobe, stable elsewhere, over one day and Other findings as noted This agrees with the preliminary interpretation provided overnight by [facility] teleradiology service.
--- NOTE | 2016-04-11 10:34 | Pulmonology Progress Note ---
Assessment/Plan Assessment/Plan IMPRESSION: 1. Possible pulmonary edema. 2. 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 3. Hyponatremia. 4. Acute renal failure. 5. Metabolic acidosis. 6. Significant acidemia. 7. Altered mental status. 8. Acute on chronic encephalopathy. 9. Underlying dementia. 10. Do not resuscitate status. PLAN stable acid base reviewed chest XR still acidotic optimize BIPAP needed; keep negative and monitor close follow up empiric antibiotics; cultures noted respiratory care impression, plan, and exam edited and reviewed in detail care discussed with RN Subjective Allergies: Coded Allergies: No Known Allergies (Unverified , 04/06/16) Subjective difficulty with acid base last night now improved on BIPAP Objective Last 24 Hour Vital Signs Date Time Temp Pulse Resp B/P Pulse Ox O2 Delivery O2 Flow Rate FiO2 04/11/16 09:00 80 20 Facial 45 04/11/16 07:52 79 18 Facial 45 04/11/16 07:25 79 18 Bi-pap 45 04/11/16 07:20 80 18 99 Bi-pap 45 04/11/16 05:27 82 22 Facial 45 04/11/16 04:03 98.3 77 19 116/56 100 Bi-pap 04/11/16 04:00 76 04/11/16 04:00 8.0 45 04/11/16 03:39 80 24 Bi-pap 45 04/11/16 03:34 78 26 Bi-pap 45 04/11/16 03:34 78 26 Facial 45 04/11/16 01:11 84 20 Facial 45 04/11/16 00:08 99.0 85 21 124/65 100 Bi-pap 04/11/16 00:00 8.0 45 04/10/16 23:22 86 25 Bi-pap 45 04/10/16 23:14 84 25 Bi-pap 45 04/10/16 23:14 82 25 Facial 45 04/10/16 21:26 85 32 Facial 45 04/10/16 20:04 98.6 89 26 123/60 100 Bi-pap 45 04/10/16 20:00 8.0 45 04/10/16 20:00 86 04/10/16 19:24 86 25 Bi-pap 45 04/10/16 19:12 90 25 Bi-pap 45 04/10/16 19:09 90 27 Facial 45 04/10/16 19:08 Bi-pap 45 04/10/16 19:07 100 Bi-pap 45 04/10/16 16:44 101 26 Facial 45 04/10/16 16:00 97.9 89 28 114/64 98 Nasal Cannula 4.5 04/10/16 16:00 8.0 45 04/10/16 15:35 101 26 Bi-pap 45 04/10/16 15:29 104 26 Facial 45 04/10/16 15:25 104 26 Bi-pap 45 04/10/16 12:37 112 24 92 Facial 45 04/10/16 12:00 112 04/10/16 12:00 8.0 45 04/10/16 11:44 107 21 99 Bi-pap 45 04/10/16 11:36 97.1 112 29 140/68 89 Bi-pap 45 04/10/16 11:35 108 26 98 Bi-pap 45 04/10/16 11:28 108 26 97 Facial 45 Intake and Output 04/10/16 04/11/16 19:00 07:00 Intake Total 584 ml 440 ml Balance 584 ml 440 ml IV Total 584 ml 275 ml Tube Feeding 165 ml # Voids 2 1 # Bowel Movements 1 Objective GENERAL: A well-developed male. The patient appears to be chronically ill. withdrawn HEENT: negative. NECK: Supple. No adenopathy. Pupils are sluggish, but reactive. LUNGS: reduced breath sounds. scattered rhonchi and some crackles at both bases. CARDIAC: S1 and S2. Regular rhythm. Soft systolic murmur at the parasternal border. No rubs or gallops. ABDOMEN: Soft, nontender, and nondistended. G-tube in place. No hepatosplenomegaly. EXTREMITIES: No cyanosis, clubbing, or edema. NEUROLOGIC: Grossly nonfocal. Laboratory Tests 04/10/16 11:55: Arterial Blood pH 7.251L, Arterial Blood Partial Pressure CO2 61.1*H, Arterial Blood Partial Pressure O2 60.3L, Arterial Blood HCO3 26.3H, Arterial Blood Oxygen Saturation 91.0L, Arterial Blood Base Excess -1.7, Shine Test Positive 04/10/16 14:00: Arterial Blood pH 7.185*L, Arterial Blood Partial Pressure CO2 69.8*H, Arterial Blood Partial Pressure O2 67.3L, Arterial Blood HCO3 25.8, Arterial Blood Oxygen Saturation 92.1, Arterial Blood Base Excess -3.2, Shine Test Positive 04/11/16 06:15: White Blood Count 8.7, Red Blood Count 3.15L, Hemoglobin 9.9L, Hematocrit 31.9L , Mean Corpuscular Volume 101H, Mean Corpuscular Hemoglobin 31.4H, Mean Corpuscular Hemoglobin Concent 31.1L, Red Cell Distribution Width 13.7, Platelet Count 166, Mean Platelet Volume 8.9, Neutrophils (%) (Auto) 73.6, Lymphocytes (%) (Auto) 14.5L, Monocytes (%) (Auto) 10.9H, Eosinophils (%) (Auto ) 0.2, Basophils (%) (Auto) 0.8, Prothrombin Time 10.3, Prothromb Time International Ratio 1.0, Sodium Level 155#H, Potassium Level 3.8, Chloride Level 117H, Carbon Dioxide Level 26, Anion Gap 12, Blood Urea Nitrogen 38H, Creatinine 1.4H, Estimat Glomerular Filtration Rate , Glucose Level 183H, Calcium Level 8.5L, Total Bilirubin < 0.2, Aspartate Amino Transf (AST/SGOT) 45H , Alanine Aminotransferase (ALT/SGPT) 34, Alkaline Phosphatase 86, Total Protein 6.0L, Albumin 2.4L, Globulin 3.6, Albumin/Globulin Ratio 0.6L 04/11/16 07:40: Arterial Blood pH 7.330L, Arterial Blood Partial Pressure CO2 50.0H, Arterial Blood Partial Pressure O2 83.3, Arterial Blood HCO3 26.2H, Arterial Blood Oxygen Saturation 96.3, Arterial Blood Base Excess 0.1, Shine Test Positive Current Medications Medications (Trade) Dose Ordered Sig/Yusra Route PRN Reason Start Time Stop Time Status Last Admin Dose Admin Acetaminophen (Tylenol) 650 mg Q4H PRN ORAL Mild Pain/Temp > 100.5 04/06/16 06:30 05/06/16 06:29 Albuterol/ Ipratropium 3 ml 3 ml Q4HRT HHN 04/08/16 11:00 04/13/16 10:59 04/11/16 07:51 Atenolol (Tenormin) 100 mg DAILY GT 04/06/16 10:30 05/06/16 10:29 04/10/16 08:53 Atorvastatin Calcium (Lipitor) 10 mg BEDTIME ORAL 04/06/16 21:00 05/06/16 20:59 04/10/16 21:05 Clopidogrel Bisulfate (Plavix) 75 mg DAILY GT 04/06/16 10:30 05/06/16 10:29 04/10/16 08:53 Docusate Sodium (Colace) 100 mg BID GT 04/06/16 10:00 05/06/16 09:59 04/09/16 19:03 Donepezil HCl (Aricept) 10 mg QHS GT 04/06/16 21:00 05/06/16 20:59 04/10/16 21:05 Heparin Sodium (Porcine) (Heparin 5000 units/ml) 5,000 units EVERY 12 HOURS SUBQ 04/06/16 09:00 05/06/16 08:59 04/10/16 21:07 Heparin Sodium/ Sodium Chloride (Heparin 2000 units/Ns 1000ml premix) 2,000 unit ONCE ONCE INJ 04/12/16 09:00 04/12/16 09:01 Lidocaine HCl (Xylocaine 1% 30ml) 30 ml ONCE ONCE INJ 04/12/16 09:00 04/12/16 09:01 Memantine (Namenda) 10 mg Q12HR GT 04/06/16 12:00 05/06/16 11:59 04/10/16 21:05 Piperacillin Sod/ Tazobactam Sod/ Sodium Chloride (Zosyn/Sodium Chloride 100ml bag) 100 ml @ 25 mls/hr Q8H IVPB 04/07/16 12:00 04/14/16 11:59 04/11/16 04:25 Potassium Chloride/Dextrose/ Sodium Chloride (KCl/D5 0.45% NS) 1,005 ml @ 75 mls/hr [id number] IV 04/09/16 11:00 05/09/16 10:59 04/11/16 04:26 Sertraline HCl (Zoloft) 50 mg DAILY GT 04/06/16 10:30 05/06/16 10:29 04/10/16 08:53 Sodium Bicarbonate 50 ml 50 ml ONCE ONCE IV 04/12/16 09:00 04/12/16 09:01 Vancomycin HCl 1 ea 1 ea DAILY PRN MISC Per rx protocol 04/07/16 09:15 05/07/16 09:14 Vancomycin HCl/ Dextrose (Vancomycin/D5W 250ml) 250 ml @ 167 mls/hr Q24H IVPB 04/11/16 11:00 04/16/16 10:59 DULCE PRICE Apr 11, 2016 10:34
[2016-04-11] MEDS: Sertraline 50mg tab GT SCH (11:35)
[2016-04-11] MEDS: Memantine 10mg tab GT SCH (11:35)
[2016-04-11] MEDS: Heparin 5000 units/ml inj SUBQ SCH ×2 (11:35→20:07)
[2016-04-11] MEDS: Docusate 100mg tablet GT SCH ×2 (11:36→17:31)
[2016-04-11] MEDS: Vancomycin 750 MG in D5W 250 ML IVPB SCH (11:57)
[2016-04-11 12:00] VITALS: BP 123/72
[2016-04-11 16:00] VITALS: BP 130/74
[2016-04-11] MEDS ORDERED: Sterile Water Irrig 1000ml IRRIG ONE (18:03)
[2016-04-11 20:00] VITALS: BP 128/58
[2016-04-11] MEDS: Donepezil 10mg tab GT SCH (20:05)
[2016-04-12] VITALS (7 sets, daily range): BP systolic 124–146; BP diastolic 53–64
--- NOTE | 2016-04-12 00:47 | Progress Note ---
DATE: 04/07/2016 CARDIOLOGY PROGRESS NOTE SUBJECTIVE: The patient remains withdrawn, lethargic, and congested. He requires respiratory therapy around the clock. OBJECTIVE: VITAL SIGNS: Blood pressure is 137/53, pulse 90, and respiratory rate 22. LUNGS: Accessory muscle use. Bilateral rhonchi. HEART: Regular rhythm and rate. Normal S1 and S2 with a fourth heart sound. ABDOMEN: Soft. No edema. LABORATORY DATA: White count 18.2 and hemoglobin 10. BUN 32 and creatinine 1.5. Sodium 140, potassium 5.4, and bicarbonate 29. Albumin 3. IMPRESSION: 1. Severe sepsis. 2. Lactic acidosis. 3. Aspiration pneumonia. 4. Secondary sinus tachycardia. 5. Hypertensive heart disease with labile blood pressure. 6. Chronic diastolic congestive heart failure. 7. Acute on chronic renal failure. 8. Mild protein-calorie malnutrition. 9. Anemia due to chronic kidney disease. 10. Hyperkalemia precipitated by exogenous replacement. PLAN: 1. Antibiotics. 2. Respiratory hygiene. 3. Aspiration precautions. 4. Cautious hydration with saline. 5. Replace electrolytes as needed. 6. Avoid negative fluid balance at this time. Beto Grant M.D. DR: VIJAY JOB#: [id number] CC:
--- NOTE | 2016-04-12 01:07 | Progress Note ---
DATE: 04/11/2016 SUBJECTIVE: The patient's condition remains tenuous. Respiratory parameters remained labile with episodes of congestion. OBJECTIVE: VITAL SIGNS: Afebrile, blood pressure 130/74, pulse 80, and respirations 20. LUNGS: Bilateral rhonchi. HEART: Regular rhythm and rate. Normal S1 and S2. ABDOMEN: Soft. EXTREMITIES: 2+ to 3+ pitting edema. LABORATORY DATA: Sodium 155, potassium 3.8, chloride 117, BUN 38, and creatinine 1.4. Albumin 2.4. White count 8.7 and hemoglobin 9.9. IMPRESSION: 1. Aspiration pneumonia, healthcare-acquired pneumonia. 2. Severe sepsis, improved. 3. Dehydration. 4. Hypernatremia. 5. Hypovolemia. 6. Severe edema due to third spacing. 7. Severe protein-calorie malnutrition. PLAN: 1. Respiratory hygiene, antibiotics, free water replacement, feedings by NG tube. 2. DVT prophylaxis. 3. Discontinue psychiatric regimen at this time. 4. Monitor cardiorenal parameters. 5. Prognosis remains poor. Beto Grant M.D. DR: CHELI JOB#: [id number] CC:
--- NOTE | 2016-04-12 01:37 | Progress Note ---
DATE: 04/10/2016 Late Entry for 04/10/2016 SUBJECTIVE: The patient was seen and evaluated. The patient has congestion and shortness of breath. His chest x-ray this afternoon revealed infiltrates now with the right side worse than the left, the latter being improved. OBJECTIVE: VITAL SIGNS: Blood pressure 123/60, pulse 89, respirations 26, and afebrile. HEENT: No accessory muscle use. Dry mucous membranes. LUNGS: Bilateral breath sounds and rhonchi. Dependent edema. HEART: Regular rhythm and rate. Normal S1 and S2 with a fourth heart sound. LABORATORY DATA: Sodium 136, potassium 3.5, chloride 128, bicarbonate 23, BUN 30, and creatinine 1.2. Albumin 2.6. White count 12.1 and hemoglobin 9.8. IMPRESSION: 1. Nosocomial pneumonia. 2. Aspiration pneumonia. 3. Severe sepsis. 4. Dehydration. 5. Hypernatremia. 6. Acute and chronic renal failure. 7. Anemia of chronic kidney disease. 8. Moderate protein-calorie malnutrition. 9. Secondary sinus tachycardia. 10. Chronic diastolic congestive heart failure. 11. Third spacing with peripheral edema. PLAN: 1. Antibiotics. 2. Respiratory hygiene. 3. Nutritional support. 4. Maintenance hydration. 5. Feedings by NG tube. 6. Titrate antihypertensives. 7. Avoid intravascular hypovolemic state. Taylor Barney JOB#: [id number] CC:
[2016-04-12] MEDS: DuoNeb 0.5-3(2.5)mg/3ml neb HHN SCH ×6 (03:37→23:07)
[2016-04-12] MEDS: Potassium Chloride 10 MEQ in D5 1/2NS 1,000 ML IV SCH (04:02)
[2016-04-12 07:23] LABS: BASOPHILS % (AUTO) 0.2 % (0.0-2.0); EOSINOPHILS % (AUTO) 1.4 % (0.0-3.0); LYMPHOCYTES % (AUTO) 14.1 % (20.0-45.0); MEAN CORPUSCULAR HEMOGLOBIN 32.6 PG (27.0-31.0); MEAN CORPUSCULAR HGB CONC 32.2 G/DL (32.0-36.0); MEAN CORPUSCULAR VOLUME 101 FL (80-99); MEAN PLATELET VOLUME 9.5 FL (6.5-10.1); MONOCYTES % (AUTO) 2.3 % (1.0-10.0); PLATELET COUNT 182 K/UL (150-450); RED BLOOD COUNT 2.99 M/UL (4.70-6.10); RED CELL DISTRIBUTION WIDTH 14.1 % (11.6-14.8); WHITE BLOOD COUNT 10.3 K/UL (4.8-10.8)
[2016-04-12 07:43] LABS: ALANINE AMINOTRANSFERASE 73 U/L (3-41); ALBUMIN/GLOBULIN RATIO 0.6 (1.0-2.7); ANION GAP 12 (5-15); ASPARTATE AMINO TRANSFERASE 78 U/L (5-40); CALCIUM 8.5 mg/dL (8.6-10.2); CARBON DIOXIDE 28 mEQ/L (20-30); CHLORIDE 116 mEQ/L (98-107); CREATININE 1.4 mg/dL (0.7-1.2); HEMOLYSIS 15; POTASSIUM 3.2 mEQ/L (3.4-4.9); SODIUM 156 mEQ/L (135-145); TOTAL PROTEIN 6.1 g/dL (6.6-8.7)
[2016-04-12 08:37] LABS: ABG PCO2 53.1 mmHg (35.0-45.0)
[2016-04-12 08:38] LABS: ABG ALLEN TEST POSITIVE
--- NOTE | 2016-04-12 08:53 | Pulmonology Progress Note ---
Assessment/Plan Assessment/Plan IMPRESSION: 1. Possible pulmonary edema. 2. 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 3. Hyponatremia. 4. Acute renal failure. 5. Metabolic acidosis. 6. Significant acidemia. 7. Altered mental status. 8. Acute on chronic encephalopathy. 9. Underlying dementia. 10. Do not resuscitate status. PLAN no improvement reviewed chest XR still acidotic; follow up ABG optimize BIPAP needed; continue full support keep negative and monitor close follow up IV antibiotics; cultures noted respiratory care as is impression, plan, and exam edited and reviewed in detail care discussed with RN Subjective Allergies: Coded Allergies: No Known Allergies (Unverified , 04/06/16) Subjective difficulty with acid base last night still acidotic on BIPAP Objective Last 24 Hour Vital Signs Date Time Temp Pulse Resp B/P Pulse Ox O2 Delivery O2 Flow Rate FiO2 04/12/16 07:33 78 21 100 Bi-pap 45 04/12/16 07:31 76 21 98 Facial 45 04/12/16 07:20 76 20 100 Bi-pap 45 04/12/16 05:00 70 20 98 Facial 45 04/12/16 04:10 96.0 64 20 124/53 95 Non-Rebreather 04/12/16 04:00 75 04/12/16 04:00 8.0 45 04/12/16 03:45 78 20 100 Bi-pap 45 04/12/16 03:30 73 22 99 Full Face 45 04/12/16 03:30 74 22 100 Bi-pap 45 04/12/16 01:18 60 24 91 Facial 45 04/12/16 00:10 97.2 74 20 138/62 100 Bi-pap 04/12/16 00:00 73 04/12/16 00:00 8.0 45 04/11/16 23:40 68 22 92 Bi-pap 45 04/11/16 23:30 64 20 91 Full Face 45 04/11/16 23:30 64 22 91 Bi-pap 45 04/11/16 21:30 68 21 90 Full Face 45 04/11/16 20:00 8.0 45 04/11/16 20:00 97.1 73 20 128/58 99 04/11/16 20:00 71 04/11/16 19:23 78 20 94 Bi-pap 45 04/11/16 19:22 70 20 92 Bi-pap 45 04/11/16 19:17 70 20 92 Facial 45 04/11/16 17:00 75 20 99 Facial 45 04/11/16 16:00 97.0 80 20 130/74 99 04/11/16 16:00 73 04/11/16 16:00 8.0 45 04/11/16 14:40 84 20 Bi-pap 45 04/11/16 14:39 81 20 99 Facial 45 04/11/16 14:30 81 18 99 Bi-pap 45 04/11/16 13:25 84 20 Facial 45 04/11/16 12:04 89 04/11/16 12:00 96.3 91 24 123/72 100 Bi-pap 45 04/11/16 12:00 8.0 45 04/11/16 11:38 90 121/59 04/11/16 11:07 85 20 Facial 45 04/11/16 11:00 82 20 Bi-pap 45 04/11/16 10:50 85 18 99 Bi-pap 45 04/11/16 09:00 80 20 Facial 45 Intake and Output 04/11/16 04/12/16 19:00 07:00 Intake Total 640 ml 1264 ml Balance 640 ml 1264 ml Intake Free Water 100 ml 100 ml IV Total 100 ml 724 ml Tube Feeding 440 ml 440 ml # Voids 3 4 # Bowel Movements 1 1 Objective GENERAL: A well-developed male. The patient appears to be chronically ill. withdrawn and doing poorly HEENT: negative. NECK: Supple. No adenopathy. Pupils are sluggish, but reactive. LUNGS: reduced breath sounds. persistent rhonchi and some crackles at both bases. CARDIAC: S1 and S2. Regular rhythm. Soft systolic murmur at the parasternal border. No rubs or gallops. ABDOMEN: Soft, nontender, and nondistended. G-tube in place. No hepatosplenomegaly. EXTREMITIES: No cyanosis, clubbing, or edema. NEUROLOGIC: Grossly nonfocal. poor LOC Laboratory Tests 04/12/16 06:35: White Blood Count 10.3, Red Blood Count 2.99L, Hemoglobin 9.8L, Hematocrit 30.3L , Mean Corpuscular Volume 101H, Mean Corpuscular Hemoglobin 32.6H, Mean Corpuscular Hemoglobin Concent 32.2, Red Cell Distribution Width 14.1, Platelet Count 182, Mean Platelet Volume 9.5, Neutrophils (%) (Auto) 82.0H, Lymphocytes ( %) (Auto) 14.1L, Monocytes (%) (Auto) 2.3, Eosinophils (%) (Auto) 1.4, Basophils (%) (Auto) 0.2, Sodium Level 156H, Potassium Level 3.2L, Chloride Level 116H, Carbon Dioxide Level 28, Anion Gap 12, Blood Urea Nitrogen 34H, Creatinine 1.4H, Estimat Glomerular Filtration Rate , Glucose Level 164H, Calcium Level 8.5L, Magnesium Level 2.0, Total Bilirubin < 0.2, Aspartate Amino Transf (AST/SGOT) 78H, Alanine Aminotransferase (ALT/SGPT) 73H, Alkaline Phosphatase 110, Pro-B-Type Natriuretic Peptide [id number], Total Protein 6.1L, Albumin 2.5L, Globulin 3.6, Albumin/Globulin Ratio 0.6L 04/12/16 08:12: Arterial Blood pH 7.291L, Arterial Blood Partial Pressure CO2 53.1H, Arterial Blood Partial Pressure O2 122.0H, Arterial Blood HCO3 25.0, Arterial Blood Oxygen Saturation 98.0, Arterial Blood Base Excess -2.0, Shine Test Positive Current Medications Medications (Trade) Dose Ordered Sig/Yusra Route PRN Reason Start Time Stop Time Status Last Admin Dose Admin Acetaminophen (Tylenol) 650 mg Q4H PRN ORAL Mild Pain/Temp > 100.5 04/06/16 06:30 05/06/16 06:29 Albuterol/ Ipratropium 3 ml 3 ml Q4HRT HHN 04/08/16 11:00 04/13/16 10:59 04/12/16 07:28 Atenolol (Tenormin) 100 mg DAILY GT 04/06/16 10:30 05/06/16 10:29 04/11/16 11:38 Atorvastatin Calcium (Lipitor) 10 mg BEDTIME ORAL 04/06/16 21:00 05/06/16 20:59 04/11/16 20:06 Clopidogrel Bisulfate (Plavix) 75 mg DAILY GT 04/06/16 10:30 05/06/16 10:29 04/11/16 11:38 Docusate Sodium (Colace) 100 mg BID GT 04/06/16 10:00 05/06/16 09:59 04/11/16 17:31 Donepezil HCl (Aricept) 10 mg QHS GT 04/06/16 21:00 05/06/16 20:59 04/11/16 20:05 Heparin Sodium (Porcine) (Heparin 5000 units/ml) 5,000 units EVERY 12 HOURS SUBQ 04/06/16 09:00 05/06/16 08:59 04/11/16 20:07 Heparin Sodium/ Sodium Chloride (Heparin 2000 units/Ns 1000ml premix) 2,000 unit ONCE ONCE INJ 04/12/16 09:00 04/12/16 09:01 Lidocaine HCl 30 ml 30 ml ONCE ONCE INJ 04/12/16 09:00 04/12/16 09:01 Piperacillin Sod/ Tazobactam Sod/ Sodium Chloride (Zosyn/Sodium Chloride 100ml bag) 100 ml @ 25 mls/hr Q8H IVPB 04/07/16 12:00 04/14/16 11:59 04/12/16 04:02 Potassium Chloride/Dextrose/ Sodium Chloride (KCl/D5 0.45% NS) 1,005 ml @ 75 mls/hr [id number] IV 04/09/16 11:00 05/09/16 10:59 04/12/16 04:02 Vancomycin HCl 1 ea 1 ea DAILY PRN MISC Per rx protocol 04/07/16 09:15 05/07/16 09:14 Vancomycin HCl/ Dextrose (Vancomycin/D5W 250ml) 250 ml @ 167 mls/hr Q24H IVPB 04/11/16 11:00 04/16/16 10:59 04/11/16 11:57 DULCE PRICE Apr 12, 2016 08:53
[2016-04-12] MEDS ORDERED: Lidocaine 1% Plain 30 ml INJ ONE (09:00)
[2016-04-12] MEDS ORDERED: Heparin 2000 units/Ns 1000ml INJ ONE (09:00)
[2016-04-12] MEDS ORDERED: Sodium Bicarbonate 8.4% 50ml Inj IV ONE (09:00)
[2016-04-12] MEDS: Docusate 100mg tablet GT SCH ×3 (09:19→23:12)
[2016-04-12] MEDS: Heparin 5000 units/ml inj SUBQ SCH ×2 (09:59→23:16)
--- NOTE | 2016-04-12 10:51 | Infectious Diseases Prog Note ---
"Assessment/Plan Assessment/Plan antibiotics : vancomycin iv, zosyn A 1. MRSA | pseudomonas pneumonia 2. respiratory failure 3. leucocytosis improving 4. CVA 5. HTN 6. hypernatremia P 1. continue vancomycin iv 2. d/c zosyn 3. start levoquin 4. will follow up cultures Subjective ROS Limited/Unobtainable: Yes Allergies: Coded Allergies: No Known Allergies (Unverified , 04/06/16) Objective Vital Signs Last 24 Hour Vital Signs Date Time Temp Pulse Resp B/P Pulse Ox O2 Delivery O2 Flow Rate FiO2 04/12/16 09:24 92 146/64 04/12/16 09:06 73 21 98 Facial 45 04/12/16 08:00 97.7 92 22 146/64 98 Bi-pap 45 04/12/16 07:33 78 21 100 Bi-pap 45 04/12/16 07:31 76 21 98 Facial 45 04/12/16 07:20 76 20 100 Bi-pap 45 04/12/16 05:00 70 20 98 Facial 45 04/12/16 04:10 96.0 64 20 124/53 95 Non-Rebreather 04/12/16 04:00 75 04/12/16 04:00 8.0 45 04/12/16 03:45 78 20 100 Bi-pap 45 04/12/16 03:30 73 22 99 Full Face 45 04/12/16 03:30 74 22 100 Bi-pap 45 04/12/16 01:18 60 24 91 Facial 45 04/12/16 00:10 97.2 74 20 138/62 100 Bi-pap 04/12/16 00:00 73 04/12/16 00:00 8.0 45 04/11/16 23:40 68 22 92 Bi-pap 45 04/11/16 23:30 64 20 91 Full Face 45 04/11/16 23:30 64 22 91 Bi-pap 45 04/11/16 21:30 68 21 90 Full Face 45 04/11/16 20:00 8.0 45 04/11/16 20:00 97.1 73 20 128/58 99 04/11/16 20:00 71 04/11/16 19:23 78 20 94 Bi-pap 45 04/11/16 19:22 70 20 92 Bi-pap 45 04/11/16 19:17 70 20 92 Facial 45 04/11/16 17:00 75 20 99 Facial 45 04/11/16 16:00 97.0 80 20 130/74 99 04/11/16 16:00 73 04/11/16 16:00 8.0 45 04/11/16 14:40 84 20 Bi-pap 45 04/11/16 14:39 81 20 99 Facial 45 04/11/16 14:30 81 18 99 Bi-pap 45 04/11/16 13:25 84 20 Facial 45 04/11/16 12:04 89 04/11/16 12:00 96.3 91 24 123/72 100 Bi-pap 45 04/11/16 12:00 8.0 45 04/11/16 11:38 90 121/59 04/11/16 11:07 85 20 Facial 45 04/11/16 11:00 82 20 Bi-pap 45 04/11/16 10:50 85 18 99 Bi-pap 45 Height (Feet): 5 Height (Inches): 9.00 Weight (Pounds): 140 HEENT: other - on bipap Respiratory/Chest: lungs clear Cardiovascular: normal rate, regular rhythm, no gallop/murmur Abdomen: soft, non tender, other - GT Extremities: no edema Laboratory Tests Test 04/12/16 06:35 04/12/16 08:12 White Blood Count 10.3 K/UL (4.8-10.8) Red Blood Count 2.99 M/UL (4.70-6.10) L Hemoglobin 9.8 G/DL (14.2-18.0) L Hematocrit 30.3 % (42.0-52.0) L Mean Corpuscular Volume 101 FL (80-99) H Mean Corpuscular Hemoglobin 32.6 PG (27.0-31.0) H Mean Corpuscular Hemoglobin Concent 32.2 G/DL (32.0-36.0) Red Cell Distribution Width 14.1 % (11.6-14.8) Platelet Count 182 K/UL (150-450) Mean Platelet Volume 9.5 FL (6.5-10.1) Neutrophils (%) (Auto) 82.0 % (45.0-75.0) H Lymphocytes (%) (Auto) 14.1 % (20.0-45.0) L Monocytes (%) (Auto) 2.3 % (1.0-10.0) Eosinophils (%) (Auto) 1.4 % (0.0-3.0) Basophils (%) (Auto) 0.2 % (0.0-2.0) Sodium Level 156 mEQ/L (135-145) H Potassium Level 3.2 mEQ/L (3.4-4.9) L Chloride Level 116 mEQ/L (98-107) H Carbon Dioxide Level 28 mEQ/L (20-30) Anion Gap 12 (5-15) Blood Urea Nitrogen 34 mg/dL (7-23) H Creatinine 1.4 mg/dL (0.7-1.2) H Estimat Glomerular Filtration Rate mL/min (>60) Glucose Level 164 mg/dL (74-106) H Calcium Level 8.5 mg/dL (8.6-10.2) L Magnesium Level 2.0 mg/dL (1.7-2.5) Total Bilirubin < 0.2 mg/dL (0.0-1.2) Aspartate Amino Transf (AST/SGOT) 78 U/L (5-40) H Alanine Aminotransferase (ALT/SGPT) 73 U/L (3-41) H Alkaline Phosphatase 110 U/L (40-129) Pro-B-Type Natriuretic Peptide 49790 pg/mL (0-450) H Total Protein 6.1 g/dL (6.6-8.7) L Albumin 2.5 g/dL (3.5-5.2) L Globulin 3.6 g/dL Albumin/Globulin Ratio 0.6 (1.0-2.7) L Arterial Blood pH 7.291 (7.350-7.450) Arterial Blood Partial Pressure CO2 53.1 mmHg (35.0-45.0) H Arterial Blood Partial Pressure O2 122.0 mmHg (75.0-100.0) H Arterial Blood HCO3 25.0 mmol/L (22.0-26.0) Arterial Blood Oxygen Saturation 98.0 % (92.0-98.0) Arterial Blood Base Excess -2.0 Shine Test Positive JAN WU Apr 12, 2016 10:51"
[2016-04-12] MEDS: Vancomycin 750 MG in D5W 250 ML IVPB SCH (11:00)
[2016-04-12] MEDS ORDERED: KCl 10% 40mEq/30ml liquid NG ONE (12:00)
[2016-04-12] MEDS: Levofloxacin 500mg tab ORAL SCH (12:00)
--- NOTE | 2016-04-12 13:23 | Diagnostic Imaging Report ---
Indication: Dyspnea Comparison: 04/10/16 A single view chest radiograph was obtained. Findings: Consolidation in the right upper lobe again noted. Heart is enlarged stable. Background of pulmonary vascular congestion is noted and may be mildly improved since the last study. Bones are osteopenic. Impression: Suspected right upper lobe pneumonia. Slightly improved CHF
--- NOTE | 2016-04-12 17:04 | Diagnostic Imaging Report ---
Indication: commercial insurance underwriter venous access Findings: After the indications, procedure, risks, complications, and alternatives of the procedure were explained, written informed consent was obtained. The left upper extremity was prepped with alcohol. All elements of maximal sterile barrier technique were followed including usage of a cap, mask, sterile gown, sterile gloves, hand hygiene and a large sterile sheet. Sonographic evaluation of the upper extremity was performed demonstrating a patent and compressible brachial vein. Access was obtained under real-time ultrasound guidance and digital image was saved and archived. An .018 wire was introduced. Needle exchanged for a 5 [place] peel-away sheath. Measurements were obtained. A 5 [place] dual-lumen Power PICC line catheter was cut to 38 cm and introduced over the wire. Peel-away sheath and wire were removed.Catheter was secured to the skin using 2-0 Prolene suture. Both ports aspirate and flush easily. Post procedure chest x-ray demonstrates good position of the PICC line catheter within the SVC. Impression: Successful placement of an upper extremity PICC line catheter
--- NOTE | 2016-04-12 20:57 | Consultation ---
DATE OF CONSULTATION: 04/12/2016 NEPHROLOGY CONSULTATION REFERRING PHYSICIAN: 1. Benjamin Machado M.D. 2. Beto Grant M.D. REASON FOR CONSULTATION: Hypernatremia and elevated BUN and creatinine. HISTORY OF PRESENT ILLNESS: The patient is an 86-year-old who is resident of an [facility] who presents with shortness of breath and fever to 102. He was found to have pneumonia and some pulmonary vascular redistribution consistent with congestive heart failure. He has developed abnormal laboratories. The patient is unable to provide a history. He is currently on BiPAP and had no 1V access until this afternoon when a PICC line was placed. ALLERGIES: None known. MEDICATIONS: Current medicines are reviewed on the chart. PHYSICAL EXAMINATION: GENERAL: The patient lying in bed, on BiPAP. VITAL SIGNS: Pulse 70, respirations 24, pulse oximetry 98 on 45%, temperature 97.1, blood pressure 135/61. HEENT: His eyes are closed. He is on BiPAP. Mouth is closed. NECK: No adenopathy. LUNGS: Distant breath sounds. I hear no rales or rhonchi. HEART: Rhythm is regular. I hear no murmur. ABDOMEN: Mildly distended. There is a gastrostomy tube. There is no focal tenderness. EXTREMITIES: A 2+ edema. NEUROLOGIC: The patient is obtunded. There is no spontaneous movement. PERTINENT LABORATORY DATA: Show white count 10.3, hemoglobin 9.8. Sodium 156, potassium 3.2, chloride 116, CO2 28, BUN 34, creatinine is 1.4 with a glucose of 164. Serum albumin is 2.5 and BNP is 25, 134. A blood gas done today showed a pH of 7.29, pCO2 53, pO2 of 122 with a base excess of -2. IMPRESSION: 1. Hypernatremia secondary to dehydration. 2. Acute kidney injury likely also secondary to dehydration, possible contribution of sepsis. 3. Respiratory failure. 4. Pneumonia. 5. Congestive heart failure. 6. Moderate to severe protein-calorie malnutrition. 7. Unresponsiveness. 8. History of gastrostomy feedings. PLAN: The patient be given free water which hopefully will correct his sodium and will replace his potassium and monitor his lytes. Stefan Emanuel M.D. DR: Katelyn JOB#: [id number] CC:
[2016-04-12] MEDS: Donepezil 10mg tab GT SCH (23:12)
[2016-04-13 00:05] VITALS: BP 145/115
[2016-04-13] MEDS: DuoNeb 0.5-3(2.5)mg/3ml neb HHN SCH ×2 (03:50→07:28)
--- NOTE | 2016-04-13 03:57 | Progress Note ---
DATE: 04/12/2016 CARDIOLOGY PROGRESS NOTE AND INTERNAL MEDICINE COVERAGE SUBJECTIVE: The patient is increasingly withdrawn and lethargic. IV access could not be obtained yesterday. The patient is tolerating feedings by NG-tube. OBJECTIVE: GENERAL: He is on BiPAP support, withdrawn, and lethargic. VITAL SIGNS: Blood pressure is 135/61, pulse rate 70, and respiratory rate 24. CHEST: Anasarca noted. Diminished breath sounds. Paradoxical abdominal motion. HEART: Regular rhythm and rate. Normal S1 and S2. ABDOMEN: Soft. LABORATORY DATA: Sodium is 156, potassium 3.2, chloride 116, bicarbonate 28, BUN 34, and creatinine 1.4. White count is 10.3 and hemoglobin 9.8. ABG, pH is 7.29, pCO2 53, and pO2 122. IMPRESSION: 1. Severe sepsis. 2. Pneumonia. 3. Hypernatremia. 4. Dehydration. 5. Hypokalemia. 6. Acute on chronic renal failure. 7. Severe protein-calorie malnutrition. 8. Toxic and metabolic encephalopathy. PLAN: 1. Free water by feeding tube. 2. PICC access for adequate IV hydration. 3. Hypotonic IV fluids. 4. Replace potassium. 5. Check magnesium. 6. Continue antibiotics. 7. DVT and stress ulcer prophylaxes. Taylor Barney JOB#: [id number] CC:
[2016-04-13 04:10] VITALS: BP 132/56
[2016-04-13 07:49] VITALS: BP 151/91
[2016-04-13] MEDS: Levofloxacin 500mg tab ORAL SCH (08:37)
[2016-04-13] MEDS: Heparin 5000 units/ml inj SUBQ SCH ×2 (08:41→21:39)
--- NOTE | 2016-04-13 09:02 | Infectious Diseases Prog Note ---
"Assessment/Plan Assessment/Plan A: 1. MRSA | pseudomonas pneumonia 2. respiratory failure on BIPAP 3. leucocytosis improving 4. CVA 5. HPN 6. hypernatremia P 1. continue vancomycin & Levaquin 2. will follow up cultures Subjective ROS Limited/Unobtainable: Yes Neurologic: Reports: confusion, other - on restraint Allergies: Coded Allergies: No Known Allergies (Unverified , 04/06/16) Objective Vital Signs Last 24 Hour Vital Signs Date Time Temp Pulse Resp B/P Pulse Ox O2 Delivery O2 Flow Rate FiO2 04/13/16 08:39 79 151/91 04/13/16 07:49 96.1 79 14 151/91 93 Bi-pap 35 04/13/16 07:28 35 04/13/16 07:28 73 26 93 Bi-pap 35 04/13/16 07:28 72 26 93 Facial 35 04/13/16 05:14 70 21 97 Full Face 35 04/13/16 04:17 74 04/13/16 04:10 97.0 74 20 132/56 97 Bi-pap 04/13/16 04:00 45 04/13/16 03:51 74 21 98 Bi-pap 35 04/13/16 03:40 70 21 96 Bi-pap 35 04/13/16 03:30 73 23 98 Full Face 35 04/13/16 01:30 60 20 96 Full Face 45 04/13/16 00:05 97.7 65 18 145/115 90 Bi-pap 04/13/16 00:00 45 04/12/16 23:09 66 25 97 Bi-pap 45 04/12/16 23:09 76 28 99 Bi-pap 45 04/12/16 23:08 66 24 97 Facial 45 04/12/16 21:30 72 21 98 Full Face 45 04/12/16 20:00 97.0 73 20 135/54 99 04/12/16 20:00 45 04/12/16 19:20 72 20 100 Bi-pap 45 04/12/16 19:19 66 20 98 Bi-pap 45 04/12/16 19:16 66 20 98 Facial 45 04/12/16 19:03 68 04/12/16 16:58 70 24 98 Facial 45 04/12/16 16:04 79 19 100 Bi-pap 45 04/12/16 16:00 8.0 45 04/12/16 16:00 74 04/12/16 16:00 97.1 70 22 135/61 99 04/12/16 15:40 70 19 96 Bi-pap 45 04/12/16 15:29 74 19 98 Facial 45 04/12/16 14:24 98.7 77 20 133/57 100 Bi-pap 45 04/12/16 13:05 73 21 98 Facial 45 04/12/16 12:44 75 04/12/16 12:00 8.0 45 04/12/16 12:00 98.7 77 20 133/57 100 Bi-pap 45 04/12/16 11:54 74 16 100 Bi-pap 45 04/12/16 11:43 70 16 96 Bi-pap 45 04/12/16 11:25 70 16 96 Facial 45 04/12/16 09:45 82 04/12/16 09:24 92 146/64 04/12/16 09:06 73 21 98 Facial 45 Height (Feet): 5 Height (Inches): 9.00 Weight (Pounds): 140 HEENT: other - on BIPAP Respiratory/Chest: decreased breath sounds Cardiovascular: normal rate Abdomen: soft, non tender, other - G feeding Extremities: no edema, other - Left arm PICC line Neurologic/Psychiatric: disoriented Current Medications Medications (Trade) Dose Ordered Sig/Yusra Route PRN Reason Start Time Stop Time Status Last Admin Dose Admin Acetaminophen (Tylenol) 650 mg Q4H PRN ORAL Mild Pain/Temp > 100.5 04/06/16 06:30 05/06/16 06:29 Albuterol/ Ipratropium 3 ml 3 ml Q4HRT HHN 04/08/16 11:00 04/13/16 10:59 04/13/16 07:28 Atenolol (Tenormin) 100 mg DAILY GT 04/06/16 10:30 05/06/16 10:29 04/13/16 08:39 Atorvastatin Calcium (Lipitor) 10 mg BEDTIME ORAL 04/06/16 21:00 05/06/16 20:59 04/12/16 23:12 Clopidogrel Bisulfate (Plavix) 75 mg DAILY GT 04/06/16 10:30 05/06/16 10:29 04/13/16 08:38 Docusate Sodium (Colace) 100 mg BID GT 04/06/16 10:00 05/06/16 09:59 04/12/16 23:12 Donepezil HCl (Aricept) 10 mg QHS GT 04/06/16 21:00 05/06/16 20:59 04/12/16 23:12 Heparin Sodium (Porcine) (Heparin 5000 units/ml) 5,000 units EVERY 12 HOURS SUBQ 04/06/16 09:00 05/06/16 08:59 04/13/16 08:41 Levofloxacin 500 mg 500 mg DAILY ORAL 04/12/16 12:00 04/19/16 11:59 04/13/16 08:37 Potassium Chloride/Dextrose (KCl/D5W 1000ml) 1,020 ml @ 75 mls/hr [id number] IV 04/12/16 20:00 05/12/16 19:59 04/12/16 20:11 Vancomycin HCl (Vanco rx to dose) 1 ea DAILY PRN MISC Per rx protocol 04/07/16 09:15 05/07/16 09:14 Vancomycin HCl/ Dextrose (Vancomycin/D5W 250ml) 250 ml @ 167 mls/hr Q24H IVPB 04/11/16 11:00 04/16/16 10:59 04/11/16 11:57 LISETTE BONILLA Apr 13, 2016 09:02"
--- NOTE | 2016-04-13 10:10 | Pulmonology Progress Note ---
Assessment/Plan Assessment/Plan IMPRESSION: 1. Possible pulmonary edema. 2. 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 3. Hyponatremia. 4. Acute renal failure. 5. Metabolic acidosis. 6. Significant acidemia. 7. Altered mental status. 8. Acute on chronic encephalopathy. 9. Underlying dementia. 10. Do not resuscitate status. PLAN no improvement reviewed chest XR still acidotic; follow up ABG today and monitor optimize BIPAP needed; continue full support for now keep negative and monitor close follow up IV antibiotics; cultures noted respiratory care as is no plan to intubate impression, plan, and exam edited and reviewed in detail care discussed with RN Subjective ROS Limited/Unobtainable: Yes Allergies: Coded Allergies: No Known Allergies (Unverified , 04/06/16) Subjective difficulty with acid base last night still acidotic on BIPAP Objective Last 24 Hour Vital Signs Date Time Temp Pulse Resp B/P Pulse Ox O2 Delivery O2 Flow Rate FiO2 04/13/16 09:57 80 28 97 Facial 35 04/13/16 08:39 79 151/91 04/13/16 07:49 96.1 79 14 151/91 93 Bi-pap 35 04/13/16 07:28 35 04/13/16 07:28 73 26 93 Bi-pap 35 04/13/16 07:28 72 26 93 Facial 35 04/13/16 05:14 70 21 97 Full Face 35 04/13/16 04:17 74 04/13/16 04:10 97.0 74 20 132/56 97 Bi-pap 04/13/16 04:00 45 04/13/16 03:51 74 21 98 Bi-pap 35 04/13/16 03:40 70 21 96 Bi-pap 35 04/13/16 03:30 73 23 98 Full Face 35 04/13/16 01:30 60 20 96 Full Face 45 04/13/16 00:05 97.7 65 18 145/115 90 Bi-pap 04/13/16 00:00 45 04/12/16 23:09 66 25 97 Bi-pap 45 04/12/16 23:09 76 28 99 Bi-pap 45 04/12/16 23:08 66 24 97 Facial 45 04/12/16 21:30 72 21 98 Full Face 45 04/12/16 20:00 97.0 73 20 135/54 99 04/12/16 20:00 45 04/12/16 19:20 72 20 100 Bi-pap 45 04/12/16 19:19 66 20 98 Bi-pap 45 04/12/16 19:16 66 20 98 Facial 45 04/12/16 19:03 68 04/12/16 16:58 70 24 98 Facial 45 04/12/16 16:04 79 19 100 Bi-pap 45 04/12/16 16:00 8.0 45 04/12/16 16:00 74 04/12/16 16:00 97.1 70 22 135/61 99 04/12/16 15:40 70 19 96 Bi-pap 45 04/12/16 15:29 74 19 98 Facial 45 04/12/16 14:24 98.7 77 20 133/57 100 Bi-pap 45 04/12/16 13:05 73 21 98 Facial 45 04/12/16 12:44 75 04/12/16 12:00 8.0 45 04/12/16 12:00 98.7 77 20 133/57 100 Bi-pap 45 04/12/16 11:54 74 16 100 Bi-pap 45 04/12/16 11:43 70 16 96 Bi-pap 45 04/12/16 11:25 70 16 96 Facial 45 Intake and Output 04/12/16 04/13/16 19:00 07:00 Intake Total 360 ml Balance 360 ml Intake Free Water 250 ml Tube Feeding 110 ml # Voids 2 # Bowel Movements 1 2 Objective GENERAL: A well-developed male. The patient appears to be chronically ill. withdrawn and doing poorly HEENT: negative. NECK: Supple. No adenopathy. Pupils are sluggish, but reactive. LUNGS: reduced breath sounds. persistent rhonchi and some crackles at both bases. CARDIAC: S1 and S2. Regular rhythm. Soft systolic murmur at the parasternal border. No rubs or gallops. ABDOMEN: Soft, nontender, and nondistended. G-tube in place. No hepatosplenomegaly. EXTREMITIES: No cyanosis, clubbing, or edema. NEUROLOGIC: Grossly nonfocal. poor LOC Current Medications Medications (Trade) Dose Ordered Sig/Yusra Route PRN Reason Start Time Stop Time Status Last Admin Dose Admin Acetaminophen (Tylenol) 650 mg Q4H PRN ORAL Mild Pain/Temp > 100.5 04/06/16 06:30 05/06/16 06:29 Albuterol/ Ipratropium 3 ml 3 ml Q4HRT HHN 04/08/16 11:00 04/13/16 10:59 04/13/16 07:28 Atenolol (Tenormin) 100 mg DAILY GT 04/06/16 10:30 05/06/16 10:29 04/13/16 08:39 Atorvastatin Calcium (Lipitor) 10 mg BEDTIME ORAL 04/06/16 21:00 05/06/16 20:59 04/12/16 23:12 Clopidogrel Bisulfate (Plavix) 75 mg DAILY GT 04/06/16 10:30 05/06/16 10:29 04/13/16 08:38 Docusate Sodium (Colace) 100 mg BID GT 04/06/16 10:00 05/06/16 09:59 04/12/16 23:12 Donepezil HCl (Aricept) 10 mg QHS GT 04/06/16 21:00 05/06/16 20:59 04/12/16 23:12 Heparin Sodium (Porcine) (Heparin 5000 units/ml) 5,000 units EVERY 12 HOURS SUBQ 04/06/16 09:00 05/06/16 08:59 04/13/16 08:41 Levofloxacin 500 mg 500 mg DAILY ORAL 04/12/16 12:00 04/19/16 11:59 04/13/16 08:37 Potassium Chloride/Dextrose (KCl/D5W 1000ml) 1,020 ml @ 75 mls/hr [id number] IV 04/12/16 20:00 05/12/16 19:59 04/12/16 20:11 Vancomycin HCl (Vanco rx to dose) 1 ea DAILY PRN MISC Per rx protocol 04/07/16 09:15 05/07/16 09:14 Vancomycin HCl/ Dextrose (Vancomycin/D5W 250ml) 250 ml @ 167 mls/hr Q24H IVPB 04/11/16 11:00 04/16/16 10:59 04/11/16 11:57 DULCE PRICE Apr 13, 2016 10:10
--- NOTE | 2016-04-13 10:25 | Diagnostic Imaging Report ---
Indication: SOB Technique: One view of the chest Comparison: 04/12/2016 Findings: Interim placement left arm PICC, in good position. Bilateral extensive parenchymal infiltrates versus edema persists, unchanged. Small right pleural effusion, left lateral basilar pleural calcifications are unchanged. There are surgical clips in the left neck region Impression: Interim left PICC placement. Otherwise unchanged, over one day, findings as above.
[2016-04-13 10:32] LABS: L.PNEUMOPHILIA IGM SERO-1 < 1:16 (< 1:16); L.PNEUMOPHILIA SERO-1 <0.91 OD ratio (0.00-0.90); MYCOPLASMA PNEUMONIAE AB IGG 309 U/mL (0-99); MYCOPLASMA PNEUMONIAE AB IGM <770 U/mL (0-769)
[2016-04-13 11:31] VITALS: BP 149/66
[2016-04-13] MEDS: Vancomycin 750 MG in D5W 250 ML IVPB SCH (12:02)
[2016-04-13 12:06] LABS: ABG BASE EXCESS 5.1; ABG PCO2 51.8 mmHg (35.0-45.0)
[2016-04-13 12:07] LABS: ABG ALLEN TEST POSITIVE
[2016-04-13 12:58] LABS: ANION GAP 6 (5-15); CARBON DIOXIDE 28 mEQ/L (20-30); CHLORIDE 123 mEQ/L (98-107); CREATININE 1.1 mg/dL (0.7-1.2); HEMOLYSIS 2; SODIUM 157 mEQ/L (135-145)
--- NOTE | 2016-04-13 14:31 | Nephrology Progress Note ---
Assessment/Plan Problem List: (1) Malnutrition of moderate degree (2) Hypokalemia (3) Hyponatremia (4) Sepsis (5) Pneumonia Plan continue hypotonic iv and rx sepsis Subjective ROS Limited/Unobtainable: Yes Constitutional: Reports: weakness Objective Objective Last 24 Hour Vital Signs Date Time Temp Pulse Resp B/P Pulse Ox O2 Delivery O2 Flow Rate FiO2 04/13/16 12:00 84 04/13/16 12:00 45 04/13/16 11:31 96.3 81 25 149/66 97 Bi-pap 35 04/13/16 11:25 81 27 94 Facial 35 04/13/16 09:57 80 28 97 Facial 35 04/13/16 08:39 79 151/91 04/13/16 08:00 75 04/13/16 08:00 45 04/13/16 07:49 96.1 79 24 151/91 93 Bi-pap 35 04/13/16 07:43 75 25 96 Bi-pap 35 04/13/16 07:28 35 04/13/16 07:28 73 26 93 Bi-pap 35 04/13/16 07:28 72 26 93 Facial 35 04/13/16 05:14 70 21 97 Full Face 35 04/13/16 04:17 74 04/13/16 04:10 97.0 74 20 132/56 97 Bi-pap 04/13/16 04:00 45 04/13/16 03:51 74 21 98 Bi-pap 35 04/13/16 03:40 70 21 96 Bi-pap 35 04/13/16 03:30 73 23 98 Full Face 35 04/13/16 01:30 60 20 96 Full Face 45 04/13/16 00:05 97.7 65 18 145/115 90 Bi-pap 04/13/16 00:00 45 04/12/16 23:09 66 25 97 Bi-pap 45 04/12/16 23:09 76 28 99 Bi-pap 45 04/12/16 23:08 66 24 97 Facial 45 04/12/16 21:30 72 21 98 Full Face 45 04/12/16 20:00 97.0 73 20 135/54 99 04/12/16 20:00 45 04/12/16 19:20 72 20 100 Bi-pap 45 04/12/16 19:19 66 20 98 Bi-pap 45 04/12/16 19:16 66 20 98 Facial 45 04/12/16 19:03 68 04/12/16 16:58 70 24 98 Facial 45 04/12/16 16:04 79 19 100 Bi-pap 45 04/12/16 16:00 8.0 45 04/12/16 16:00 74 04/12/16 16:00 97.1 70 22 135/61 99 04/12/16 15:40 70 19 96 Bi-pap 45 04/12/16 15:29 74 19 98 Facial 45 Intake and Output 04/12/16 04/13/16 19:00 07:00 Intake Total 360 ml Balance 360 ml Intake Free Water 250 ml Tube Feeding 110 ml # Voids 2 # Bowel Movements 1 2 Laboratory Tests 04/13/16 11:55: Arterial Blood pH 7.394, Arterial Blood Partial Pressure CO2 51.8H, Arterial Blood Partial Pressure O2 56.6L, Arterial Blood HCO3 30.9H, Arterial Blood Oxygen Saturation 91.8L, Arterial Blood Base Excess 5.1, Shine Test Positive 04/13/16 12:30: Sodium Level 157H, Potassium Level 4.0, Chloride Level 123H, Carbon Dioxide Level 28, Anion Gap 6, Blood Urea Nitrogen 33H, Creatinine 1.1, Estimat Glomerular Filtration Rate , Glucose Level 134H, Calcium Level 8.0L Height (Feet): 5 Height (Inches): 9.00 Weight (Pounds): 140 General Appearance: moderate distress EENT: other - periorb edema Neck: normal alignment Cardiovascular: regular rhythm Respiratory/Chest: rhonchi - bilaterally Abdomen: non tender Extremities: moderate edema Neurologic: unresponsive CARMELLA AYON Apr 13, 2016 14:31
[2016-04-13 16:00] VITALS: BP 133/59
[2016-04-13] MEDS: Docusate 100mg tablet GT SCH (18:15)
--- NOTE | 2016-04-13 18:19 | Wound Care Consultation ---
Wound Assessment Wound Assessment #1: Wound Present on Admission: Yes New Wound: No Status Change of Wound: No Wound Location Body Site Modif: left Wound Location Body Site: wrist Wound Type: blister - open blister Gonsalo Test: Does not Gonsalo Wound Thickness: Partial Thickness Wound Length: 3.5 Wound Width: 3.0 Wound Depth: 0.1 Percent of Wound [place]/Red: 100 Wound Drainage Description: Serosanguineous Wound Drainage Amount: Scant Wound Drainage Odor: None/Absent Tissue Surrounding Wound: Erythemic Wound General Appearance: Reddened Wound Assessment #2: Wound Number: #2 Wound Present on Admission: Yes New Wound: No Status Change of Wound: No Wound Location Body Site Modif: left, lower Wound Location Body Site: leg Wound Type: scab - dry Gonsalo Test: Does not Gonsalo Wound Thickness: Partial Thickness Wound Length: 6.0 Wound Width: 0.3 Wound Depth: 0.1 Percent of Wound [place]/Red: 100 Wound Drainage Description: Serosanguineous Wound Drainage Amount: Scant Wound Drainage Odor: None/Absent Tissue Surrounding Wound: Intact Wound General Appearance: Reddened Wound Assessment #3: Wound Number: #3 Wound Present on Admission: Yes New Wound: No Status Change of Wound: No Wound Location Body Site: nose Wound Type: scab - dry Gonsalo Test: Does not Gonsalo Wound Thickness: Full Thickness Wound Length: 0.3 Wound Width: 0.3 Wound Depth: utd Percent of Wound Black/Brown: 100 Wound Drainage Amount: None Wound Drainage Odor: None/Absent Tissue Surrounding Wound: Intact Wound General Appearance: Asymptomatic Wound Assessment #4: Wound Number: #4 Wound Present on Admission: Yes New Wound: No Status Change of Wound: No Wound Location Body Site Modif: right Wound Location Body Site: arm - forearm Wound Type: blister - open Gonsalo Test: Does not Gonsaol Wound Thickness: Partial Thickness Wound Length: 2.5 Wound Width: 2.0 Wound Depth: 0.1 Percent of Wound [place]/Red: 100 Wound Drainage Description: Serosanguineous Wound Drainage Amount: Scant Wound Drainage Odor: None/Absent Tissue Surrounding Wound: Intact Wound General Appearance: Reddened Wound Comment #1 Open blister on right forearm #2 Open blister on left wrist #3 Dry scab on the nose #4 Dry scab on lower anterior leg Recommendation -Turn and reposition -Keep clean and dry -Optimize nutrition -Assess for s/s of infection on the skin tear and surrounding area -F/u with any changes accordingly -Local wound care as ordered CARA DOWNING RN Apr 13, 2016 18:19
[2016-04-13 20:00] VITALS: BP 155/53
[2016-04-13] MEDS: Donepezil 10mg tab GT SCH (21:38)
[2016-04-14 00:24] VITALS: BP 140/53
[2016-04-14] MEDS ORDERED: Tubing IV Secondary IV ONE (01:10)
[2016-04-14] MEDS ORDERED: NS 275ml ONE (01:10)
[2016-04-14] MEDS ORDERED: Sterile Water Irrig 1000ml IRRIG ONE (01:10)
--- NOTE | 2016-04-14 11:58 | Progress Note ---
DATE: 04/14/2016 CARDIOLOGY PROGRESS NOTE SUBJECTIVE: The patient remains withdrawn, lethargic, and was in respiratory distress. He is required BiPAP efforts to take off the BiPAP . The patient has central access PICC line, IV hydration has been resumed. OBJECTIVE: VITAL SIGNS: Blood pressure is 151/91, . He is afebrile. CHEST: Diminished breath sounds. HEART: Regular rhythm and rate. Normal S1 and S2. ABDOMEN: Soft. EXTREMITIES: No edema. LABORATORY AND DIAGNOSTIC DATA: White count is 10.3 and hemoglobin 9.8 yesterday. Today, chemistry, sodium 157, potassium 4, chloride 123, bicarbonate 28, BUN 33, and creatinine 1.1. IMPRESSION: 1. Severe sepsis. 2. Pneumonia. 3. Dysphagia. 4. Acute respiratory insufficiency. 5. Acute on chronic respiratory acidosis. 6. Severe protein-calorie malnutrition. 7. Dehydration. 8. Hypernatremia. 9. . 10. Prerenal azotemia. 11. Acute on chronic diastolic congestive heart failure. 12. guided DNI . PLAN: 1. Hypotonic fluid hydration. 2. by feeding tube. 3. Antibiotics. 4. BiPAP support. 5. . 6. DVT prophylaxis. 7. . Beto Grant M.D. DR: Yoli JOB#: [id number] CC:
--- NOTE | 2016-04-14 13:48 | Discharge Summary ---
DATE OF ADMISSION: 04/06/2016 DATE OF DISCHARGE: 04/14/2016 NOTE: POOR AUDIO QUALITY DISCHARGE SUMMARY AND CARDIOLOGY PROGRESS NOTE CODE STATUS: DNR. SUBJECTIVE: The patient is increasingly withdrawn, lethargic, and continues to have severe electrolyte disturbances. Continued on hypotonic IV fluids following central venous access and BiPAP support as needed in a patient with antibiotics. HOSPITAL COURSE: The patient is transferred from a care home facility with respiratory distress and was noted to have severe pneumonia with evidence of acute respiratory insufficiency and multiple electrolyte disturbances as well as hypoxia . The patient is admitted to the BiPAP support provided as well as antibiotics. He was seen in Cardiology, Pulmonary, and Infectious Disease consultations. Continued efforts to optimize his condition. given. deteriorates and was . FINAL DIAGNOSES: 1. Respiratory failure. 2. Hospital-acquired pneumonia, aspiration. 3. Respiratory acidosis. 4. Hypoxia. 5. Acute on chronic diastolic congestive heart failure. 6. Gastroparesis. 7. Severe sepsis. 8. Protein-calorie malnutrition. 9. Anemia. 10. Severe dehydration. 11. Hypernatremia. 12. Hypokalemia. 13. Acute on chronic renal failure. 14. Peripheral vascular disease. 15. Dementia. 16. Toxic encephalopathy. 17. Metabolic encephalopathy. Beto Grant M.D. DR: Yoli JOB#: [id number] CC:
== END 2016-04-14 01:11 | disposition expired | DRG 871 ==
LOC: EDBD 00:23 → EMR 00:50 → EDBEDREQ 01:12 → 4E 01:18 → EDBEDREQ 01:39 → 2E 03:47
DX: A41.9 Sepsis, unspecified organism (principal); J15.1 Pneumonia due to Pseudomonas; J69.0 Pneumonitis due to inhalation of food and vomit; J96.01 Acute respiratory failure with hypoxia; I50.33 Acute on chronic diastolic (congestive) heart failure; E43 Unspecified severe protein-calorie malnutrition; G92 Toxic encephalopathy; J15.212 Pneumonia due to Methicillin resistant Staphylococcus aureus; N17.9 Acute kidney failure, unspecified; I13.0 Hypertensive heart and chronic kidney disease with heart failure and stage 1 through stage 4 chronic kidney disease, or unspecified chronic kidney disease; E87.4 Mixed disorder of acid-base balance; E87.0 Hyperosmolality and hypernatremia; K31.84 Gastroparesis; R65.20 Severe sepsis without septic shock; E86.0 Dehydration; Z68.20 Body mass index [BMI] 20.0-20.9, adult; Z66 Do not resuscitate; Z78.1 Physical restraint status; N18.9 Chronic kidney disease, unspecified; Z86.73 Personal history of transient ischemic attack (TIA), and cerebral infarction without residual deficits; E87.6 Hypokalemia; R13.10 Dysphagia, unspecified; R00.0 Tachycardia, unspecified; I73.9 Peripheral vascular disease, unspecified; D63.1 Anemia in chronic kidney disease; D72.829 Elevated white blood cell count, unspecified; F03.90 Unspecified dementia, unspecified severity, without behavioral disturbance, psychotic disturbance, mood disturbance, and anxiety
CPT/HCPCS: 36415; 36569; 36600; 71010; 76937; 80048; 80053; 80202; 82550; 82803; 82962; 83605; 83735; 83880; 84484; 85007; 85025; 85610; 85730; 86710; 86713; 86738; 87040; 87070; 87081; 87181; 87205; 93005; 94640; 94660; 94664; 94760; J2405; J7620